=== PATIENT | female | born 1995 | race Caucasian/White ===

== ENCOUNTER 2017-05-03 06:50 | Inpatient (IN) | payer MEDICAID, SELFPAY ==
[2017-05-03 06:59] VITALS: BMI 41.5
[2017-05-03] MEDS: Lactated Ringers 1,000 ML 50 ML IV ×2 (07:30→11:19)
[2017-05-03] MEDS: Oxytocin 30 units/NS 500 ml 30 UNITS/500 ML IV.SOLN IV (07:49)
[2017-05-03 08:13] LABS: Hemoglobin 9.6 g/dl (12.0-15.0); Mean Corp Hgb Conc 34.3 g/gl (32-36); Mean Corpuscular Hgb 31.5 pg (27.0-32.0); Mean Corpuscular Volume 91.8 fL (81-99); Platelet Count 195 K/mm3 (150-450); RBC Distribution Width CV 13.1 % (11.6-14.6); RBC Distribution Width SD 42.2 fl (35.1-43.9); Red Blood Count 3.05 M/mm3 (4.2-5.4); White Blood Count 8.4 K/mm3 (4.4-11.0)
[2017-05-03 08:19] LABS: Scan Indicated on CBC? Y/N NO
--- NOTE | 2017-05-03 09:57 | PCM.PN.OB ---
Subjective: Feeling contractions strongly. Objective: Afeb VSS BPs normal today FHR tracing Cat 1. - Physical Exam General: Alert, Oriented x3, Cooperative, No apparent distress Lungs: Clear to auscultation, Normal air movement Cardiovascular: Regular rate, Regular Rhythm Abdomen: Soft, Non Tender, Non-Distended, Gravid, Appropriate for Gestational Age, - - Significant lower abdomen edema present Extremities: Edema - pitting edema to mid thigh Neurological: Neuro grossly intact Psych/Mental Status: Normal Affect Comment: CE 08/02/-2 Weight: 219 lb 9.6 oz Body Mass Index (BMI) 41.5 Laboratory Tests Past 24 Hrs 05/03/17 05/03/17 07:30 07:30 WBC 8.4 RBC 3.05 L Hgb 9.6 L Hct 28.0 L MCV 91.8 MCH 31.5 MCHC 34.3 RDW 13.1 RDW Differential 42.2 Plt Count 195 MPV 11.0 Blood Type O POSITIVE Antibody Screen NEGATIVE Assessment/Plan AROM performed with clear fluid noted. Continue pitocin induction.
[2017-05-03] MEDS: Oxytocin 30 units/NS 500 ml 30 UNITS/500 ML IV.SOLN 334 UNITS IV (15:00)
[2017-05-03] MEDS: Oxytocin 30 units/NS 500 ml 30 UNITS/500 ML IV.SOLN 167 UNITS IV (15:30)
[2017-05-03] MEDS: Ibuprofen 600 MG Tablet PO (16:26)
[2017-05-03] MEDS: Furosemide 20 MG Tablet PO (18:02)
--- NOTE | 2017-05-03 18:29 | PCM.OB.VAG ---
(1) induced hypertension, antepartum Status: Chronic Vaginal Delivery Maternal Presentation: Medically Indicated Induction Presented at 38w1d ega admitted for induction of labor secondary to induced hypertension possible preeclampsia. Method of Induction: Pitocin Medical Reason for Induction: Gestational Hypertension, Preeclampsia, eclampsia Amniotic Membrane Rupture Type: Artificial - 1000 Amniotic Fluid Description: Clear Final SPARKLE: 05/16/17 Final SPARKLE Source: US <20 weeks Gestational age: 38 Weeks and 1 Days Date of Procedure: 05/03/17 Pre-Operative Diagnosis: labor Post-Operative Diagnosis: labor Surgery/ Procedure Performed: Spontaneous Vaginal Delivery Anesthesiologist: Julio César Norman Type of Anesthesia: Epidural Description of Procedure: Progressed to FD then pushed for less than one push to deliver the head precipitously. The shoulders were then delivered with gentle traction. The nose and mouth were suctioned and the cord was clamped and cut. Apgars were 8/9. The placenta was delivered spontaneously intact with a centrally located 3VC. The uterus contracted well after delivery. Inspection reveals intact cervix, vagina, and perineum. Presentation: Vertex Placental Delivery Description: Spontaneous Placenta Disposition: [facility] Percentage of Placenta Abruption: 0 Cord Vessel Description: 3 Vessels Nuchal Cord Compression: Without compression Cord Entanglement: None, Around neck x 1, loose Drain: Snell to straight drain Estimated Blood Loss: 300cc Infant A gender: Female (1 minute): 8 (5 minute): 9 Episiotomy Description: None Laceration: None Medications given after delivery: IV Pitocin Complications: None
--- NOTE | 2017-05-03 18:37 | OP.PCM_ITS ---
(1) induced hypertension, antepartum Status: Chronic Vaginal Delivery Maternal Presentation: Medically Indicated Induction Presented at 38w1d ega admitted for induction of labor secondary to induced hypertension possible preeclampsia. Method of Induction: Pitocin Medical Reason for Induction: Gestational Hypertension, Preeclampsia, eclampsia Amniotic Membrane Rupture Type: Artificial - 1000 Amniotic Fluid Description: Clear Final SPARKLE: 05/16/17 Final SPARKLE Source: US <20 weeks Gestational age: 38 Weeks and 1 Days Date of Procedure: 05/03/17 Pre-Operative Diagnosis: labor Post-Operative Diagnosis: labor Surgery/ Procedure Performed: Spontaneous Vaginal Delivery Anesthesiologist: Julio César Norman Type of Anesthesia: Epidural Description of Procedure: Progressed to FD then pushed for less than one push to deliver the head precipitously. The shoulders were then delivered with gentle traction. The nose and mouth were suctioned and the cord was clamped and cut. Apgars were 8/ 9. The placenta was delivered spontaneously intact with a centrally located 3VC. The uterus contracted well after delivery. Inspection reveals intact cervix, vagina, and perineum. Presentation: Vertex Placental Delivery Description: Spontaneous Placenta Disposition: [facility] Percentage of Placenta Abruption: 0 Cord Vessel Description: 3 Vessels Nuchal Cord Compression: Without compression Cord Entanglement: None, Around neck x 1, loose Drain: Snell to straight drain Estimated Blood Loss: 300cc A gender: Female (1 minute): 8 (5 minute): 9 Episiotomy Description: None Laceration: None Medications given after delivery: IV Pitocin Complications: None
--- NOTE | 2017-05-03 18:38 | DCINST_ITS ---
Discharge Diet: No Restrictions Discharge Activity: Return to Normal Activity, May Drive, May Shower Return to work on:: 06/30/17 May shower in (days): 0 May resume sexual activity in: 4-6 weeks Call your doctor if your incision/area has: Sudden Increased Bleeding, Increased Pain/ Swelling, Foul Smelling Discharge Call your doctor if you observe: Fever of 101 or Higher, Inability to urinate, Inability to have a bowel movement, Using more than one pad per hour, Shortness of breath, Chest pain, Calf discomfort, Uncontrolled pain Cleanse incision/area with: Soap & Water Additional Instructions: If you experience any of the following, contact your healthcare provider. * Bleeding that soaks a pad every hour for 2 hours * Fever 100.4 or higher * Unrelieved incision or abdominal pain * Swelling, redness, discharge or bleeding from your incision or episiotomy site * Your incision begins to separate * Problems urinating (including inability to urinate or burning while urinating) . * Visual changes * Severe headache * Flu-like symptoms * Pain or redness in one of both of your breasts * Pain, warmth, tenderness or swelling in your legs, especially the calf area * Frequent nausea and vomiting * Symptoms of depression or anxiety If you experience any of the following, call 911 or go to the nearest Emergency Room. * Chest pain * Problems breathing * Seizure activity * Partial or complete paralysis of a body part, slurred speech, weakness or drooping of the face, or a sudden inability to walk or hold your balance Allergies/Adverse Reactions: Allergies Sulfa (Sulfonamide Antibiotics) Allergy (Verified 05/03/17 07:51) Hives tramadol Allergy (Verified 05/03/17 07:51) Vomiting Medications to take at Discharge Ferrous Gluconate 324 mg PO BID 04/16/17 Pantoprazole Sodium [Protonix] 40 mg PO DAILY 04/16/17 Vit No.130/Iron/FA [ Tablet] 1 each PO DAILY 04/16/17 Ibuprofen [Motrin] 800 mg PO TID PRN PRN #30 tab 05/03/17 Zolpidem Tartrate [Ambien] 10 mg PO 05/03/17 The following prescriptions were given: Ibuprofen [Motrin] 800 mg PO TID PRN PRN #30 tab PRN Reason: pain or cramping Please Follow Up With: Johnie Grant MD When: 6 weeks Primary Care Physician: Igor Hurley MD [Primary Care Provider] - Proposed Discharge Date: 05/05/17
[2017-05-03 21:00] VITALS: BP 109/72; PULSE 66; RESP 16; TEMP 36.9
[2017-05-04 00:30] VITALS: BP 132/61; PULSE 70; RESP 16; TEMP 36.6
[2017-05-04] MEDS: Ibuprofen 600 MG Tablet PO ×3 (02:57→18:06)
[2017-05-04 04:16] VITALS: BP 110/67; PULSE 80; RESP 18; TEMP 36.9
[2017-05-04 05:13] LABS: Hemoglobin 9.2 g/dl (12.0-15.0); Mean Corp Hgb Conc 34.1 g/gl (32-36); Mean Corpuscular Hgb 31.4 pg (27.0-32.0); Mean Corpuscular Volume 92.2 fL (81-99); Mean Platelet Vol. 10.7 fl (6.2-12.0); Platelet Count 187 K/mm3 (150-450); RBC Distribution Width CV 13.2 % (11.6-14.6); RBC Distribution Width SD 42.5 fl (35.1-43.9); Red Blood Count 2.93 M/mm3 (4.2-5.4)
[2017-05-04 05:21] LABS: Scan Indicated on CBC? Y/N NO
--- NOTE | 2017-05-04 08:00 | PCM.PN.OB ---
Subjective: No specific complaints. Lower extremity swelling better today and less painful. Bleeding light. Bottle feeding. Objective: AFeb VSS Hgb stable - Physical Exam General: Alert, Oriented x3, Cooperative, No apparent distress Lungs: Clear to auscultation, Normal air movement Cardiovascular: Regular rate, Regular Rhythm Abdomen: Soft, Non Tender, Non-Distended, - - Fundus nontender Extremities: Edema - pitting to knee Skin: No rashes Vital Signs Temp Pulse Resp BP 98.4 F 80 18 110/67 05/04/17 04:16 05/04/17 04:16 05/04/17 04:16 05/04/17 04:16 Weight: 219 lb 9.6 oz Body Mass Index (BMI) 41.5 Intake and Output for Last 24 Hours 05/02/17 05/03/17 05/04/17 23:59 23:59 23:59 Intake Total 3000 / 3000 Output Total 800 / 800 Balance 2200 / 2200 Laboratory Tests Past 24 Hrs 05/03/17 05/03/17 05/04/17 07:30 07:30 05:00 WBC 8.4 10.0 RBC 3.05 L 2.93 L Hgb 9.6 L 9.2 L Hct 28.0 L 27.0 L MCV 91.8 92.2 MCH 31.5 31.4 MCHC 34.3 34.1 RDW 13.1 13.2 RDW Differential 42.2 42.5 Plt Count 195 187 MPV 11.0 10.7 Blood Type O POSITIVE Antibody Screen NEGATIVE Assessment/Plan Doing well on PP day#1. Continue routine PP care. Continue lasix.
[2017-05-04 08:30] VITALS: BP 123/85; PULSE 86; RESP 16; TEMP 36.7; O2SAT 96
[2017-05-04] MEDS: Furosemide 20 MG Tablet PO ×2 (09:17→18:06)
[2017-05-04] MEDS: Pantoprazole Sodium 40 MG Tablet PO (09:17)
[2017-05-04 11:56] VITALS: BP 125/54; PULSE 70; RESP 16; TEMP 36.4; O2SAT 97
[2017-05-04] MEDS: Prenatal Vits Tablet 1 TABLET PO (11:57)
[2017-05-04 16:47] VITALS: BP 126/64; PULSE 82; RESP 18; TEMP 36.4; O2SAT 98
[2017-05-04 19:50] VITALS: BP 118/73; PULSE 80; RESP 16; TEMP 36.8
[2017-05-04] MEDS: Acetaminophen 500 MG Tablet 1000 MG PO (22:52)
[2017-05-05 03:20] VITALS: BP 120/68; PULSE 71; RESP 16; TEMP 36.8
[2017-05-05] MEDS: Furosemide 20 MG Tablet PO (08:17)
[2017-05-05] MEDS: Ibuprofen 600 MG Tablet PO (08:17)
[2017-05-05] MEDS: Pantoprazole Sodium 40 MG Tablet PO (08:18)
[2017-05-05 08:21] VITALS: BP 123/69; PULSE 68; RESP 16; TEMP 36.2; O2SAT 97
--- NOTE | 2017-05-05 08:38 | PCM.PN.OB ---
Subjective: No complaints. Swelling in LE reduced but still pitting. Bleeding light. Objective: Afeb VSS - Physical Exam General: Alert, Oriented x3, Cooperative, No apparent distress Lungs: Clear to auscultation, Normal air movement Cardiovascular: Regular rate, Regular Rhythm Abdomen: Soft, Non Tender, Non-Distended, - - Fundus nontender Extremities: Edema - LE Skin: No rashes Neurological: Neuro grossly intact Psych/Mental Status: Normal Affect Vital Signs Temp Pulse Resp BP Pulse Ox 97.2 F L 68 16 123/69 H 97 05/05/17 08:21 05/05/17 08:21 05/05/17 08:21 05/05/17 08:21 05/05/17 08:21 Oxygen Delivery Method Room Air Weight: 219 lb 9.6 oz Body Mass Index (BMI) 41.5 Intake and Output for Last 24 Hours 05/03/17 05/04/17 05/05/17 23:59 23:59 23:59 Intake Total 3000 / 3000 Output Total 800 / 800 Balance 2200 / 2200 Assessment/Plan Doing well on PP day#2. Cleared for discharge home today. Home going instructions and warnings given.
--- NOTE | 2017-05-05 08:45 | PCM.DC.SUM ---
Discharge Date and Diagnosis Date of Admission: 05/03/17 Date of Discharge: 05/05/17 - Primary Discharge Diagnosis S/P - Secondary Discharge Diagnosis Chronic Problems induced hypertension, antepartum (Chronic) Hospital Course and Treatment Consultations 05/03/17 06:59 Consult: Anesthesia Routine Comment: Reason For Exam: LABOR Operations: None Procedures: - - Pitocin induction, epidural, Summary of Care Provided: The patient is a 21 year old F [admitted for induction of labor secondary to induced hypertension and possible preeclammpsia. Pitocin induction was performed with resultant normal spontaneous vaginal delivery. Post course unremarkable. Discharged home on PP day#2.] Discharge Diet: No Restrictions Discharge Activity: Return to Normal Activity, May Drive, May Shower Return to work on:: 06/30/17 May shower in (days): 0 May resume sexual activity in: 4-6 weeks Call your doctor if your incision/area has: Sudden Increased Bleeding, Increased Pain/ Swelling, Foul Smelling Discharge Call your doctor if you observe: Fever of 101 or Higher, Inability to urinate, Inability to have a bowel movement, Using more than one pad per hour, Shortness of breath, Chest pain, Calf discomfort, Uncontrolled pain Cleanse incision/area with: Soap & Water Home Medications: Medications to take at Discharge Ferrous Gluconate 324 mg PO BID 04/16/17 Pantoprazole Sodium [Protonix] 40 mg PO DAILY 04/16/17 Vit No.130/Iron/FA [ Tablet] 1 each PO DAILY 04/16/17 Ibuprofen [Motrin] 800 mg PO TID PRN PRN #30 tab 05/03/17 Zolpidem Tartrate [Ambien] 10 mg PO 05/03/17 Following Prescrptions Were Given to Patient: Ibuprofen [Motrin] 800 mg PO TID PRN PRN #30 tab PRN Reason: pain or cramping Primary Care Physician: Igor Hurley MD [Primary Care Provider] - Please Follow Up With: Johnie Grant MD When: 6 weeks Disposition: Home Minutes spent on discharge:: 15 Patient Condition:: Good Meaningful Use Info Meaningful Use Diagnoses (Choose all that apply): None applicable
== END 2017-05-05 09:20 | disposition home or self-care (01) | DRG 372 ==
PROVIDERS: Obstetrics & Gynecology; Admitting Provider Obstetrics & Gynecology; Family Provider Family Medicine; PCP Family Medicine; Visit Provider Obstetrics & Gynecology
DX: O14.94 Unspecified pre-eclampsia, complicating childbirth (principal); Z37.0 Single live birth; Z3A.38 38 weeks gestation of pregnancy; Z87.891 Personal history of nicotine dependence
CPT/HCPCS: 59025; 59050; 85027; 86850; 86900; J7120; J0290

== ENCOUNTER 2017-07-19 07:10 | Day surgery (SDC) | payer MEDICAID, SELFPAY ==
[2017-07-17 10:08] LABS: Hematocrit 38.9 % (37-47); Mean Corpuscular Hgb 30.7 pg (27.0-32.0); Mean Corpuscular Volume 85.3 fL (81-99); Mean Platelet Vol. 11.1 fl (6.2-12.0); Platelet Count 238 K/mm3 (150-450); RBC Distribution Width CV 12.1 % (11.6-14.6); RBC Distribution Width SD 36.4 fl (35.1-43.9); Red Blood Count 4.56 M/mm3 (4.2-5.4); White Blood Count 8.1 K/mm3 (4.4-11.0)
[2017-07-17 10:14] LABS: Scan Indicated on CBC? Y/N NO
[2017-07-17 10:18] LABS: Prothrombin Time (Protime)PT. 13.3 SECONDS (11.7-14.9)
[2017-07-17 10:46] LABS: Pregnancy, Serum, hCG Quali. NEGATIVE Negative (0-9 Nonpreg)
[2017-07-19 07:29] VITALS: BP 115/65; PULSE 77; RESP 16; TEMP 36.7; O2SAT 98; BMI 32.6
[2017-07-19 07:31] LABS: Internal QC Validated? YES +Cl - CLEAR BKGD; Pregnancy, Urine Negative Negative
[2017-07-19] MEDS: Bupivacaine 0.25% 30 ML Vial (08:54)
--- NOTE | 2017-07-19 08:55 | FALS_PTH ---
PATIENT: YOUSUF MORA LOC: [facility] [place] U#:[id number] AGE/SX: 21/F ROOM: RE07/19/[address]: Dr. Johnie Grant MD : 1995 BED: DIS: 07/19/2017 SPEC #: [id number] RECD: 07/19/17 14:24 STATUS: RIN REWally #: [id number] ROSITA: 07/19/17 08:[address]: Johnie Grant DEPT: SURGICAL PATHOLOGY RECD BY: Anthony Mtz ENTERED: 07/19/17 14:24 SP TYPE: FALL TUBES OTHR DR: Dr. Igor Hurley MD Tissues: Fallopian tube Procedures: Surgery Specimen Level II HEADER OPERATION: Laparoscopic salpingectomy PRE-OP DIAGNOSIS: Desired sterilization TISSUE SUBMITTED: Bilateral fallopian tubes MICROSCOPIC DIAGNOSIS Bilateral fallopian tubes, salpingectomy: Bilateral fallopian tubes including fimbrial ends, no pathologic diagnosis. Bilateral paratubal cysts. SJ:sayda 07/20/17 MICROSCOPIC DESCRIPTION Slides are reviewed. GROSS DESCRIPTION Received is one container labeled with the patient's name and designated bilateral fallopian tubes. The specimen consists of bilateral fallopian tubes including fimbrial ends. The fallopian tubes are not identified as right or left. One of the fallopian tubes measure 7 cm in length and up to 1 cm in diameter. A collapsed cyst is noted 1.5 cm away from the fimbrial end measuring 2 cm in greatest dimension. The second fallopian tube measures 7 cm in length and 0.6 cm in diameter. 1.5 cm away from the fimbrial end a cyst is noted measuring 0.5 cm in greatest dimension. Sections of both fallopian tubes reveal unremarkable cut surfaces. Medical Surgical Tech sections are submitted in two cassettes as follows: 1 ? one fallopian tube and adjacent paratubal cyst, 2 ? second fallopian tube and adjacent paratubal cyst. / GWEN:sayda 07/19/17 TC:5 CPT: 77306 x2
--- NOTE | 2017-07-19 09:18 | PCM.DC ---
- Discharge Diagnoses Reason(s) for Visit for Discharge Instructions: Laparoscopic Bilateral Salpingectomy You will use the following diet at home:: No restrictions Discharge Activity: Return to Normal Activity, No Restrictions, May Drive, May not drive while taking narcotic pain medications., May Shower Return to work on:: 07/31/17 May shower in (days): 0 May resume sexual activity in: 3 weeks Call your doctor if your incision/area has: Continuous Slow Oozing, Sudden Increased Bleeding, Increased Pain/ Swelling, Increased Redness, Foul Smelling Discharge, Swelling at the incision site Call your doctor if you observe: Fever of 101 or Higher, Inability to urinate, Inability to have a bowel movement, Using more than one pad per hour, Shortness of breath, Chest pain, Calf discomfort, Uncontrolled pain Remove Dressing in (days):: 2 Cleanse incision/area with: Soap & Water Allergies/Adverse Reactions: Allergies Sulfa (Sulfonamide Antibiotics) Allergy (Verified 07/12/17 09:46) Hives tramadol Allergy (Verified 07/12/17 09:46) Vomiting Medications to take at Discharge Ibuprofen [Motrin] 800 mg PO TID PRN PRN #30 tab 07/19/17 Oxycodone [Oxyir] 5 mg PO Q4H PRN PRN 5 Days #14 tab 07/19/17 The following prescriptions were given: Oxycodone [Oxyir] 5 mg PO Q4H PRN PRN 5 Days #14 tab PRN Reason: Pain Ibuprofen [Motrin] 800 mg PO TID PRN PRN #30 tab PRN Reason: pain or cramping Primary Care Physician: Igor Hurley MD [Primary Care Provider] - Please Follow Up With: Johnie Grant MD When: one week Proposed Discharge Date: 07/19/17
--- NOTE | 2017-07-19 09:21 | PCM.OPRPT ---
Problem List (1) Request for sterilization Status: Chronic Report of Operation Date of Procedure: 07/19/17 Pre-Operative Diagnosis: Requests permanent sterilization Post-Operative Diagnosis: Same Surgery/Procedure Performed:: Laparoscopic bilateral salpingectomy Description of Surgical Findings:: Normal appearing uterus, cervix, fallopian tubes and ovaries. Liver and stomach appeared normal. supervisor plating and point assembly: Roseann Robles Type of Anesthesia:: General Anesthesiologist: Jabier Gray Special Medications: none Specimen's removed: right and left fallopian tubes Drains: none Estimated Blood Loss (mL): minimal Fluids Replaced: 500cc LR Description of Procedure: Paulina was taken to the OR with IV running. She was given two grams of Cefotetan intravenously prior to the surgery for prophylaxis. SCDs were in place and operational throughout the case and into recovery. General anesthesia was introduced without complication. SHe was then prepped and draped in the dorsal lithotomy position. A red rubber catheter was used to drain the bladder. A uterine manipulator was placed. Attention was then directed to the abdomen. A 5mm vertical incision was then made in the lower base of the umbilicus. The underlying subcutaneous tissue was dissected down to the level of the fascia with blunt dissection with a Joceline clamp. The abdomen was then elevated and a Veress needle was placed into the abdominal cavity. The abdomen was then inflated to 15 Torr with CO2 gas. The Veress needle was removed and replaced with a 5 mm laparoscopic port and trocar. The trocar was removed and replaced with the laparoscope. Findings were as mentioned above. Two 5mm lateral side ports were then placed just below the level of the umbilicus right and left of the right and left inferior epigastric vessels. Hemostasis was excellent after port placement. Attention was then directed to the left fallopian tube which was grasped, elevated and the mesosalpinx was dissected from the fimbriated end to the cornua of the uterus. The fallopian tube was then amputated at the cornua. The tube was removed through the left laparoscopic port. In a similar fashion the right fallopian tube was dissected and removed. Hemostasis was excellent at the mesosalpinx bilaterally. The laparoscopic ports were then removed and the gas evacuated from the abdomen. The skin incisions were closed with 4-0 monocryl suture. The port sites were injected superficially with 0.25% Marcaine. The uterine manipulator was removed. Anesthesia was reversed without complication. She was taken to the recovery room in stable condition. Sponge and needle counts were correct. Grafts/Implants Used: none - Complications none - Admit VTE Documentation VTE Present on Admission: No VTE Mechan Device Prophylaxis: SCD's VTE Pharm Prophylaxis ordered?: No
[2017-07-19 10:06] VITALS: BP 101/61; BP 115/65; PULSE 68; RESP 16; TEMP 36.5; O2SAT 97
[2017-07-19 10:15] VITALS: BP 104/58; BP 115/65; PULSE 59; RESP 16; O2SAT 100
[2017-07-19 10:30] VITALS: BP 112/67; BP 115/65; PULSE 55; RESP 16; O2SAT 100
[2017-07-19 10:42] VITALS: BP 115/65; BP 93/54; PULSE 57; RESP 16; TEMP 36.6; O2SAT 100
[2017-07-19 11:00] VITALS: BP 115/65
== END 2017-07-19 12:20 | disposition home or self-care (01) ==
LOC: SDC 07:11 → AC 07:11
PROVIDERS: Anesthesiology; Family Provider Family Medicine; PCP Family Medicine; Visit Provider Obstetrics & Gynecology
PROC: (CPT 58661; principal; 2017-07-19 08:40)
DX: Z30.2 Encounter for sterilization (principal); N83.8 Other noninflammatory disorders of ovary, fallopian tube and broad ligament; Z72.0 Tobacco use
CPT/HCPCS: 58661; 36415; 81025; 84703; 85027; 85610; 85730; 86850; 86900; 88302; J7120; J2405

== ENCOUNTER → 2017-08-29 18:59 | Outpatient (CLI) | payer MEDICAID, SELFPAY ==
[2017-09-01 14:30] LABS: HPV Reflexed? NOT INDICATED
== END ==
PROVIDERS: Family Provider Obstetrics & Gynecology; PCP Obstetrics & Gynecology; Visit Provider Obstetrics & Gynecology
DX: Z12.4 Encounter for screening for malignant neoplasm of cervix (principal); Z12.72 Encounter for screening for malignant neoplasm of vagina
CPT/HCPCS: 88175; G0145

== ENCOUNTER → 2018-08-30 13:48 | Outpatient (CLI) | payer MEDICAID, SELFPAY ==
[2018-08-30 16:17] LABS: Hemoglobin A1c 4.8 % (4.2-6.3)
[2018-08-30 16:20] LABS: Free T3 2.9 pg/mL (2.18-3.98); Glucose 91 mg/dL (74-106); T4 Free Direct 0.88 ng/dL (0.76-1.46); Thyroid Stim Hormone (TSH) 1.47 uIU/mL (0.358-3.74)
[2018-09-04 16:39] LABS: HPV Reflexed? NOT INDICATED
== END ==
PROVIDERS: Family Provider Obstetrics & Gynecology; PCP Obstetrics & Gynecology; Visit Provider Obstetrics & Gynecology
DX: Z12.4 Encounter for screening for malignant neoplasm of cervix (principal); E66.3 Overweight
CPT/HCPCS: 36415; 82947; 83036; 84439; 84443; 84481; 88175; G0145

== ENCOUNTER 2019-05-14 03:11 | Emergency (ER) | payer MEDICAID, SELFPAY ==
[2019-05-14 03:12] VITALS: BP 125/83; PULSE 80; RESP 17; TEMP 35.6; O2SAT 98; BMI 32.8
--- NOTE | 2019-05-14 03:35 | ED.DCSUM_ITS ---
History of Present Illness Chief Complaint: Back Narrative: Patient is a pleasant generally healthy 23-year-old female who presents with epigastric abdominal pain and vomiting. She initially developed pain in her mid back about 9 PM last night. She does have a history of sciatica so initially attributed this to her prior back pain. However shortly before presentation here she began to develop epigastric pain which she describes as more of a discomfort. It is colicky and waxes and wanes. She then had one episode of nonbloody nonbilious emesis. No diarrhea. No pelvic pain. No vaginal bleeding vaginal discharge dysuria frequency urgency. No recent illness. No fevers or cough. No chest pain or shortness of breath. Her only abdominal surgery is a tubal ligation. Past Medical History - Allergies and Home Meds Allergies/Adverse Reactions: Allergies Sulfa (Sulfonamide Antibiotics) Allergy (Verified 05/14/19 03:11) Hives tramadol Allergy (Verified 05/14/19 03:11) Vomiting Primary Care Physician: Igor Hurley MD [Primary Care Provider] - Past Medical History: None Smoking Status: Current every day smoker Review of Systems All systems negative except as indicated General: Reports: Fever Eyes: Denies: Visual changes - bilaterally ENT: Denies: Bilateral ear pain Cardiovascular: Denies: Chest pain Respiratory: Denies: Dyspnea Gastrointestinal: Reports: Abdominal pain, Nausea, Vomiting. Denies: Diarrhea Genitourinary: Denies: Dysuria, Hematuria Musculoskeletal: Denies: Myalgias, Arthralgias Skin: Denies: Rash Neurological: Denies: Headache Hematologic: Denies: Easy bruising Allergy: Denies: Uticaria Physical Exam Vital Signs/Narrative: Vital Signs Temp Pulse Resp BP Pulse Ox 05/14/19 03:12 96.0 F L 80 17 125/83 H 98 Inital Vital Signs reviewed: Yes General: Well nourished Head: Normocephalic Eyes: EOMI ENT: Moist mucous membranes Neck: Supple Cardiovascular: Regular rate, Regular rhythm Respiratory: No distress, CTA bilaterally Abdomen: Soft, Tender - Mid epigastric abdominal tenderness without guarding without rebound no focal right upper quadrant or right lower quadrant tenderness, no Mobley's sign Extremities: Nontender Skin: Normal color Neurological: Alert Psychological: Normal affect Diagnostic/Tx/Re-eval Laboratory Results 05/14/19 05/14/19 05/14/19 03:55 03:55 03:55 WBC 11.1 H RBC 4.70 Hgb 14.3 Hct 41.2 MCV 87.7 MCH 30.4 MCHC 34.7 RDW Std Deviation 38.5 RDW Coeff of Lwe 12.1 Plt Count 166 MPV 11.7 Immature Gran % (Auto) 0.500 Neut % (Auto) 59.7 Lymph % (Auto) 30.5 [place] % (Auto) 7.2 Eos % (Auto) 1.8 Baso % (Auto) 0.3 Absolute Neuts (auto) 6.6 Absolute Lymphs (auto) 3.39 Nucleated RBC % 0 Sodium 138 Potassium 3.5 Chloride 106 Carbon Dioxide 25.0 Anion Gap 7 BUN 14 Creatinine 0.76 Estim Creat Clear Calc 86.13 Est GFR (MDRD) Af Amer 121 Est GFR (MDRD) Non-Af 100 BUN/Creatinine Ratio 18.5 Glucose 89 Calcium 9.0 Total Bilirubin 0.30 AST 12 L ALT 24 Alkaline Phosphatase 92 Total Protein 7.6 Albumin 3.6 Globulin 4.0 Albumin/Globulin Ratio 0.9 Lipase 121 Serum , Qual NEGATIVE - Medical Decision Making Patient was treated with IV fluids, Toradol, Zofran. She feels much better on reevaluation and is resting comfortably. Labs are unremarkable. I suspect this is a self-limited illness. Patient advised on supportive care and was discharged home. ED Disposition - Plan for ED Patient: Disposition: Home or Assisted Living Diagnosis: Vomiting Instructions: DIET, Vomiting or Diarrhea [5yr-Adult] Referrals: Igor Hurley MD [Primary Care Provider] -
[2019-05-14] MEDS: Ketorolac 30 MG/ML Syringe IV (03:52)
[2019-05-14] MEDS: Ondansetron 4 MG/2 ML Vial IV (03:52)
[2019-05-14] MEDS: 0.9% Normal Saline 1,000 ML 1000 ML IV (03:53)
[2019-05-14 04:01] LABS: Absolute Lymphocyte Count 3.39 X10^3/uL (0.83-4.51); Absolute Neutrophil Count 6.6 X10^3/uL (2.0-7.7); Basophil# 0.03 X10^3/uL; Basophil% 0.3 % (0-1); Eosinophils% 1.8 % (0-5); Hematocrit 41.2 % (37-47); Hemoglobin 14.3 g/dL (12.0-15.0); Lymphocyte # 3.39 X10^3/ul (4.0); Lymphocyte % 30.5 % (19-41); Mean Corp Hgb Conc 34.7 g/dL (32-36); Mean Corpuscular Hgb 30.4 pg (27.0-32.0); Mean Corpuscular Volume 87.7 fL (81-99); Mean Platelet Vol. 11.7 fl (6.2-12.0); Monocyte% 7.2 % (0-10); NRBC Flagged by Analyzer 0 % (0-5); Neutrophil # 6.63 X10^3/uL (2.7-7.7); Neutrophil % 59.7 % (47-70); Platelet Count 166 K/mm3 (150-450); RBC Distribution Width CV 12.1 % (11.6-14.6); RBC Distribution Width SD 38.5 fl (35.1-43.9); White Blood Count 11.1 K/mm3 (4.4-11.0)
[2019-05-14 04:08] LABS: Internal QC Validated? YES +Cl - CLEAR BKGD
[2019-05-14 04:09] LABS: Pregnancy, Serum, hCG Quali. NEGATIVE Negative
[2019-05-14 04:17] LABS: ALB/GLOB Ratio 0.9 RATIO (0.9-2.4); AST(SGOT) 12 U/L (15-37); Alanine Aminotransfer ALT/SGPT 24 U/L (13-56); Albumin, Serum 3.6 g/dL (3.2-5.0); Alkaline Phosphatase 92 U/L (45-117); Anion Gap 7 (5-15); BUN 14 mg/dL (7-18); BUN/Creat Ratio 18.5 RATIO (10-20); Chloride 106 mmol/L (98-107); Creatinine, Serum 0.76 mg/dL (0.55-1.02); EST Glomerular Filtration Rate 100 mL/min (>60); Est Glom Filt Rate - Afr Amer 121 mL/min (>60); Estimated Creatinine Clearance 86.13 ml/min; Glucose 89 mg/dL (74-106); Lipase 121 U/L (73-393); Potassium 3.5 mmol/L (3.5-5.1); Protein, Total 7.6 g/dL (6.4-8.2); Sodium Level 138 mmol/L (136-145)
[2019-05-14 04:48] VITALS: BP 132/68; PULSE 70; RESP 18; O2SAT 100
== END 2019-05-14 04:50 | disposition home or self-care (01) ==
PROVIDERS: Emergency Provider Emergency Medicine; PCP Family Medicine; Referring Provider Family Medicine
DX: R11.10 Vomiting, unspecified (principal); F17.200 Nicotine dependence, unspecified, uncomplicated
CPT/HCPCS: 80053; 83690; 84703; 85025; 96361; 96374; 96375; 99283; J7030; J2405

== ENCOUNTER 2020-03-22 11:36 | Emergency (ER) | payer MEDICAID, SELFPAY ==
[2020-03-22 11:37] VITALS: BP 142/72; PULSE 85; RESP 17; TEMP 36.7; O2SAT 99; BMI 31.2
--- NOTE | 2020-03-22 11:48 | EKG12_ITS ---
Test Reason : Blood Pressure : / mmHG Vent. Rate : 082 BPM Atrial Rate : 082 BPM P-R Int : 136 ms QRS Dur : 076 ms QT Int : 364 ms P-R-T Axes : 052 016 028 degrees QTc Int : 425 ms Normal sinus rhythm Normal ECG Confirmed by FE ZAMARRIPA, MARTHA ([id number]), commercial production editor WAYLON NAIK ([id number]) on 03/25/2020 9:34:50 AM Referred By: JACQUI Confirmed By:MARTHA MIRAMONTES MD
--- NOTE | 2020-03-22 11:48 | RAD_ITS ---
STUDY: X-RAY CHEST REASON FOR EXAM: Female, 24 years old. Palpitations. TECHNIQUE: Single frontal view of the chest. COMPARISON: None. FINDINGS: The lungs are clear and expanded. There is no demonstrated pleural abnormality. Normal size heart. Normal mediastinum and angelina. Normal visualized pulmonary arteries. Normal visualized aortic arch and descending thoracic aorta. Normal visualized thoracic spine. Normal visualized ribs, clavicles, and shoulders. There is no demonstrated abnormality of the visualized soft tissue structures of the upper abdomen. RAD/Chest 1 View (Portable) IMPRESSION: Normal x-ray examination of the chest. Electronically Signed: Willem Seay MD at 12:51 EST , Service support ,
--- NOTE | 2020-03-22 11:49 | ED.VIS.GEN ---
History of Present Illness Chief Complaint: Palpitations Informant: Patient Onset: Today Current Severity: Mild Maximum Severity: Severe Narrative: Patient states that she was awoken from sleep at 2 AM this morning with pounding, fast racing heart. She states her body felt numb and tingly at the time. She did not feel as if she was going to pass out. She was able to fall back asleep around 4 AM and when she woke later this morning did feel better. She states her landlord convinced her to come in and get checked out. She denies recent diet change. She denies recent change in caffeine consumption. She does report that this happened 1 time previously but this episode was more severe. Past Medical History - Allergies and Home Meds Allergies/Adverse Reactions: Allergies Sulfa (Sulfonamide Antibiotics) Allergy (Verified 03/22/20 11:36) Hives tramadol Allergy (Verified 03/22/20 11:36) Vomiting Primary Care Physician: Igor Hurley MD [Primary Care Provider] - Past Medical History: None Smoking Status: Current every day smoker Review of Systems General: Denies: Chills, Fever Eyes: Denies: Visual changes - bilaterally ENT: Denies: Bilateral ear pain Cardiovascular: Reports: Chest pain, Palpitations, Heart racing Respiratory: Denies: Dyspnea Gastrointestinal: Denies: Abdominal pain, Vomiting, Diarrhea Musculoskeletal: Denies: Extremity Pain Skin: Denies: Rash Neurological: Denies: Headache Hematologic: Denies: Easy bruising, Easy bleeding Allergy: Denies: Uticaria Physical Exam Vital Signs/Narrative: Vital Signs Temp Pulse Resp BP Pulse Ox 03/22/20 11:37 98.1 F 85 17 142/72 H 99 Inital Vital Signs reviewed: Yes General: Well nourished, Well developed Head: Normocephalic ENT: Moist mucous membranes Neck: Supple Cardiovascular: Regular rate, Regular rhythm Respiratory: No distress, CTA bilaterally Abdomen: Soft, Nontender Extremities: Nontender Skin: Normal color Neurological: Alert, Oriented x3, Normal Strength, Normal Sensation Psychological: Normal affect Diagnostic/Tx/Re-eval Chest X-Ray - ED: 1 View, Read by ED Physician, Normal, Heart, Lungs, Mediastinum 03/22/20 11:48 Chest 1 View (Portable) [RAD] Stat Laboratory Results 03/22/20 03/22/20 12:03 12:03 WBC 5.7 RBC 4.35 Hgb 13.5 Hct 37.8 MCV 86.9 MCH 31.0 MCHC 35.7 RDW Std Deviation 37.7 RDW Coeff of Lew 11.9 Plt Count 160 MPV 12.1 H Immature Gran % (Auto) 0.200 Neut % (Auto) 65.1 Lymph % (Auto) 25.6 [place] % (Auto) 6.8 Eos % (Auto) 1.9 Baso % (Auto) 0.4 Absolute Neuts (auto) 3.7 Absolute Lymphs (auto) 1.46 Nucleated RBC % 0 Sodium 137 Potassium 3.8 Chloride 107 Carbon Dioxide 25.0 Anion Gap 5 BUN 9 Creatinine 0.92 Estim Creat Clear Calc 70.54 Est GFR (MDRD) Af Amer 96 Est GFR (MDRD) Non-Af 79 BUN/Creatinine Ratio 9.8 L Glucose 101 Calcium 9.0 TSH 1.98 - EKG Initial EKG Interpretation: Sinus Rhythm - Sinus 82 with no acute ischemia. - Medical Decision Making Patient was placed on threat monitoring analyst on arrival. She has had no arrhythmias while here. EKG and chest x-ray are unremarkable. Blood work is normal. Advised the patient that if she has recurrent symptoms since she is able to come to the ER well it is occurring we can get an EKG at that time. She was advised if she feels lightheaded or dizzy with this she should call 911. If she has recurrent brief episodes she is to follow with her PCP for possible Holter monitor to see if we can catch an episode. Patient voices understanding and agreement. ED Disposition - Plan for ED Patient: Disposition: Home or Assisted Living Diagnosis: Palpitations Instructions: ED Palpitations Referrals: Igor Hurley MD [Primary Care Provider] - 1-2 Weeks
[2020-03-22 11:52] VITALS: BP 129/80; PULSE 93; RESP 19; O2SAT 98
[2020-03-22 12:10] LABS: Absolute Lymphocyte Count 1.46 X10^3/uL (0.83-4.51); Absolute Neutrophil Count 3.7 X10^3/uL (2.0-7.7); Basophil# 0.02 X10^3/uL; Basophil% 0.4 % (0-1); Eosinophil# 0.11 X10^3/uL; Eosinophils% 1.9 % (0-5); Hematocrit 37.8 % (37-47); Hemoglobin 13.5 g/dL (12.0-15.0); Lymphocyte # 1.46 X10^3/ul (4.0); Lymphocyte % 25.6 % (19-41); Mean Corp Hgb Conc 35.7 g/dL (32-36); Mean Corpuscular Volume 86.9 fL (81-99); Mean Platelet Vol. 12.1 fl (6.2-12.0); Monocyte# 0.39 X10^3/uL; Monocyte% 6.8 % (0-10); NRBC Flagged by Analyzer 0 % (0-5); Neutrophil # 3.71 X10^3/uL (2.7-7.7); Neutrophil % 65.1 % (47-70); Platelet Count 160 K/mm3 (150-450); RBC Distribution Width CV 11.9 % (11.6-14.6); RBC Distribution Width SD 37.7 fl (35.1-43.9); Red Blood Count 4.35 M/mm3 (4.2-5.4); White Blood Count 5.7 K/mm3 (4.4-11.0)
[2020-03-22 12:37] LABS: Anion Gap 5 (5-15); BUN 9 mg/dL (7-18); BUN/Creat Ratio 9.8 RATIO (10-20); Chloride 107 mmol/L (98-107); Creatinine, Serum 0.92 mg/dL (0.55-1.02); EST Glomerular Filtration Rate 79 mL/min (>60); Est Glom Filt Rate - Afr Amer 96 mL/min (>60); Estimated Creatinine Clearance 70.54 ml/min; Glucose 101 mg/dL (74-106); Potassium 3.8 mmol/L (3.5-5.1); Sodium Level 137 mmol/L (136-145); Thyroid Stim Hormone (TSH) 1.98 uIU/mL (0.358-3.74)
[2020-03-22 12:48] VITALS: BP 121/60; PULSE 76; RESP 18; O2SAT 97
== END 2020-03-22 12:54 | disposition home or self-care (01) ==
PROVIDERS: Emergency Provider Emergency Medicine; PCP Family Medicine
DX: R00.2 Palpitations (principal); F17.200 Nicotine dependence, unspecified, uncomplicated
CPT/HCPCS: 71045; 80048; 84443; 85025; 93005; 99284; A4216

== ENCOUNTER → 2020-06-11 | Outpatient (CLI) | payer MEDICAID, SELFPAY | END | disposition home or self-care (01) | LOC: LABSPEC 16:54 | PROVIDERS: PCP Family Medicine; Visit Provider Obstetrics & Gynecology | DX: R30.0 Dysuria (principal); R35.0 Frequency of micturition | CPT/HCPCS: 87086; 87088 ==

== ENCOUNTER → 2020-09-30 | Outpatient (CLI) | payer MEDICAID, SELFPAY ==
[2020-10-13 20:36] LABS: HPV Reflexed? NOT INDICATED
== END | disposition home or self-care (01) ==
PROVIDERS: PCP Family Medicine; Referring Provider Obstetrics & Gynecology; Visit Provider Obstetrics & Gynecology
DX: Z12.4 Encounter for screening for malignant neoplasm of cervix (principal)
CPT/HCPCS: 88175; G0145

== ENCOUNTER 2021-02-10 11:56 | Observation (INO) | payer MEDICAID, SELFPAY ==
[2021-02-10 11:57] VITALS: BP 148/87; PULSE 99; RESP 16; TEMP 36.1; O2SAT 99; BMI 34.2
[2021-02-10 12:12] VITALS: BP 126/66; PULSE 96; RESP 28; O2SAT 98
--- NOTE | 2021-02-10 12:15 | RAD_ITS ---
STUDY: X-RAY CHEST REASON FOR EXAM: Female, 25 years old. Chest pain TECHNIQUE: Single AP portable view of the chest. COMPARISON: Comparison is made with prior study dated 03/22/2020. FINDINGS: EKG electrodes are seen. The lungs are clear and expanded. There is no demonstrated pleural abnormality. Normal size heart. Normal mediastinum and angelina. Normal visualized pulmonary arteries. Normal visualized aortic arch and descending thoracic aorta. Normal visualized thoracic spine. Normal visualized ribs, clavicles, and shoulders. There is no demonstrated abnormality of the visualized soft tissue structures of the upper abdomen. RAD/Chest 1 View (Portable) IMPRESSION: Normal x-ray examination of the chest. Electronically Signed: Arnol Holbrook MD at 12:35 EDT , Service support ,
[2021-02-10] MEDS: Aspirin 325 MG Tablet PO (12:21)
--- NOTE | 2021-02-10 12:23 | EX.ED.DYSGE1 ---
HPI History of Present Illness Chief Complaint: Chest Pain Narrative Narrative: Patient is a 25-year-old female with past medical history of anxiety. She states she was at work today around 9 when she noticed some left-sided chest discomfort which she states is more sharp and stabbing in nature. She states the pain has been constant since its onset and as is not resolved she has concerned this could be cardiac in nature. She denies any family history of cardiac disease at a young age or illicit drug use. She denies any recent trauma or excessive activity. She states that she was unsure if this was anxiety related or truly cardiac in nature and therefore comes to the hospital for evaluation [facility] Home Medications acetaminophen 500 - 1,000 mg PO DAILY PRN 02/10/21 [History Last Taken Unknown] desog-e.estradiol/e.estradiol [Volnea (28)] 2 tab PO DAILY 02/10/21 [History Last Taken 02/09/21 17:30] ibuprofen 800 mg PO DAILY PRN PRN 02/10/21 [History Last Taken 02/09/21] Allergy/AdvReac Type Severity Reaction Status Date / Time Sulfa (Sulfonamide Allergy Hives Verified 02/10/21 11:58 Antibiotics) tramadol Allergy Vomiting Verified 02/10/21 11:58 Surgical History (Updated 02/10/21 @ 12:18 by Melina Armijo) H/O tubal ligation History of tonsillectomy Social History Smoking Status: Current every day smoker tobacco type: cigarettes ROS ROS ED Constitutional Constitutional ED: Denies chills or fever(s) ENT ENT ED: Denies sore throat Cardiovascular Cardiovascular: Reports chest pain; Denies palpitations or racing heartbeat Respiratory/Chest Respiratory/Chest: Denies cough or dyspnea Gastrointestinal Gastrointestinal: Denies abdominal pain, diarrhea, nausea or vomiting Genitourinary Genitourinary ED: Denies dysuria Musculoskeletal Musculoskeletal: Denies myalgias Integumentary Denies rash Neurologic Neurologic: Denies headache(s) Psychiatric Psychiatric: Reports anxiety Hematologic/Lymphatic Hematologic/Lymphatic: Denies easy bleeding or easy bruising EXAM Physical Exam Const Vital Signs: 02/10/21 11:57 02/10/21 12:12 Temperature 97.0 F L Temperature Source Temporal Pulse Rate 99 96 Respiratory Rate 16 28 H Respiratory Effort Normal Non-Labored Blood Pressure 148/87 H 126/66 H Blood Pressure Mean 107 86 Pulse Ox 99 98 Oxygen Delivery Method Room Air Room Air Positive well nourished and well developed General Appearance ED: well developed HEENT Reports moist mucous membranes Eyes PERRL and EOMs intact bilaterally Neck supple Chest Wall Chest Narrative: Reproducible left anterior chest wall pain with palpation but no bony deformities or crepitance Resp normal respiratory effort and clear to auscultation bilaterally Cardio regular rate and regular rhythm Rate: other Other Details: Radial pulses are +2-4 bilaterally are equal and symmetric GI normal to inspection, nondistended, normoactive bowel sounds, non-tender, non-distended and no masses GI Narrative: No voluntary guarding or rigidity no pulsatile mass Auscultation: normoactive bowel sounds Palpation: soft Extremity normal to inspection Extremity Narrative: No asymmetric edema no pitting edema negative Homans' sign bilaterally Neuro oriented x3 and CN's II-XII intact bilaterally Sensorium / Orientation: alert Motor Exam: strength 5/5 throughout Psych Mood & Affect: anxious Skin no rashes or lesions noted MDM MDM MDM Narrative Medical decision making narrative: Patient presented to the ER and in no acute distress and is low risk for cardiac disease. She does smoke and take oral control however and therefore with sudden onset chest pain there is concern for pulmonary embolus and a D-dimer was added to the cardiac work-up. Troponin is normal as well as EKG but D-dimer is elevated at 0.8 so a CTA was added. CTA reveals no PE but does show pneumomediastinum with a small pneumothorax. Based on these changes patient will need to be watched in the hospital overnight and have repeat images tomorrow morning to ensure that the free air is not worsening. This treatment option was discussed with the patient and she is agreeable and therefore be admitted at this time Lab Data Attestation: I reviewed the patient's lab results. Labs: Laboratory Results - last 24 hr 02/10/21 02/10/21 02/10/21 11:55 12:15 12:15 WBC 13.5 H RBC 4.20 Hgb 12.8 Hct 36.7 L MCV 87.4 MCH 30.5 MCHC 34.9 RDW Std Deviation 38.1 RDW Coeff of Lew 11.9 Plt Count 194 MPV 11.2 Immature Gran % (Auto) 0.300 Neut % (Auto) 81.5 H Lymph % (Auto) 14.5 L [place] % (Auto) 3.3 Eos % (Auto) 0.2 Baso % (Auto) 0.2 Absolute Neuts (auto) 11.0 H Absolute Lymphs (auto) 1.96 Nucleated RBC % 0 PT 12.6 INR 1.0 APTT 26.1 D-Dimer Quant (PE/DVT) 0.79 H* Sodium Potassium Chloride Carbon Dioxide Anion Gap BUN Creatinine Estim Creat Clear Calc Est GFR (MDRD) Af Amer Est GFR (MDRD) Non-Af BUN/Creatinine Ratio Glucose Calcium Troponin I High Sens 02/10/21 12:15 WBC RBC Hgb Hct MCV MCH MCHC RDW Std Deviation RDW Coeff of Lew Plt Count MPV Immature Gran % (Auto) Neut % (Auto) Lymph % (Auto) [place] % (Auto) Eos % (Auto) Baso % (Auto) Absolute Neuts (auto) Absolute Lymphs (auto) Nucleated RBC % PT INR APTT D-Dimer Quant (PE/DVT) Sodium 137 Potassium 3.8 Chloride 110 H Carbon Dioxide 21.0 Anion Gap 6 BUN 7 Creatinine 0.76 Estim Creat Clear Calc 80.57 Est GFR (MDRD) Af Amer 118 Est GFR (MDRD) Non-Af 98 BUN/Creatinine Ratio 9.2 L Glucose 95 Calcium 9.1 Troponin I High Sens 7 Radiography Diagnostic Testing: Clinical Impression(s) from Imaging Studies Chest X-Ray 02/10/21 12:15 IMPRESSION: Normal x-ray examination of the chest. Electronically Signed: Arnol Holbrook MD at 12:35 EDT , Service support , Chest CTA 02/10/21 13:00 IMPRESSION: There is evidence of a pneumomediastinum as well as a tiny loculated pneumothorax along the anterior medial aspect of the left lower lobe. The pneumomediastinum extends into the lower cervical region. N.B. : The above Results were Read Back by Arnol Holbrook MD to Franklin Herrera and understanding confirmed on 02/10/2021 13:56:45 (ET). Electronically Signed: Arnol Holbrook MD at 14:01 EDT , Service support , ADDENDUM: 02/10/21 1408 IMPRESSION: There is evidence of a pneumomediastinum as well as a tiny loculated pneumothorax along the anterior medial aspect of the left lower lobe. The pneumomediastinum extends into the lower cervical region. N.B. : The above Results were Read Back by Arnol Holbrook MD to Franklin Herrera and understanding confirmed on 02/10/2021 13:56:45 (ET). Electronically Signed: Arnol Holbrook MD at 14:01 EDT , Service support , Discharge Plan Triage Chief Complaint: Chest Pain ED Provider: Franklin Herrera Dx/Rx/DC Orders Clinical Impression: Pneumomediastinum, Pneumothorax Prescriptions: No Action desog-e.estradiol/e.estradiol [Volnea (28)] 0.15-0.02 mgx21 /0.01 mg x 5 tablet 2 tab PO DAILY RF: 0 acetaminophen 500 mg Tablet 500 - 1,000 mg PO DAILY PRN (Reason: Pain) RF: 0 ibuprofen 200 mg Tablet 800 mg PO DAILY PRN PRN (Reason: Pain) RF: 0 Primary Care Provider: Igor Hurley Referrals: Igor Hurley MD [Primary Care Provider] - Disposition Disposition: Acute Care [facility]
[2021-02-10 12:24] LABS: Absolute Lymphocyte Count 1.96 X10^3/uL (0.83-4.51); Basophil# 0.03 X10^3/uL; Basophil% 0.2 % (0-1); Eosinophil# 0.03 X10^3/uL; Eosinophils% 0.2 % (0-5); Hematocrit 36.7 % (37-47); Hemoglobin 12.8 g/dL (12.0-15.0); Lymphocyte # 1.96 X10^3/ul (0.83-4.51); Lymphocyte % 14.5 % (19-41); Mean Corp Hgb Conc 34.9 g/dL (32-36); Mean Corpuscular Hgb 30.5 pg (27.0-32.0); Mean Corpuscular Volume 87.4 fL (81-99); Mean Platelet Vol. 11.2 fl (6.2-12.0); Monocyte# 0.44 X10^3/uL; Monocyte% 3.3 % (0-10); NRBC Flagged by Analyzer 0 % (0-5); Neutrophil # 10.99 X10^3/uL (2.7-7.7); Neutrophil % 81.5 % (47-70); Platelet Count 194 K/mm3 (150-450); RBC Distribution Width CV 11.9 % (11.6-14.6); RBC Distribution Width SD 38.1 fl (35.1-43.9); White Blood Count 13.5 K/mm3 (4.4-11.0)
[2021-02-10 12:39] LABS: D-Dimer Quantitative (DVT/PE) 0.79 FEU/ug/m (0.27-0.49)
--- NOTE | 2021-02-10 12:41 | EKG12_ITS ---
Test Reason : CP Blood Pressure : / mmHG Vent. Rate : 089 BPM Atrial Rate : 089 BPM P-R Int : 122 ms QRS Dur : 082 ms QT Int : 368 ms P-R-T Axes : 050 032 042 degrees QTc Int : 447 ms Normal sinus rhythm Normal ECG Confirmed by BRETT ZAMARRIPA, ROBB ([id number]), book editor WAYLON NAIK ([id number]) on 02/15/2021 9:59:09 AM Referred By: HEATHER//DEYSI Confirmed By:JAMAICA WEST MD
[2021-02-10 12:42] LABS: Anion Gap 6 (5-15); BUN 7 mg/dL (7-18); BUN/Creat Ratio 9.2 RATIO (10-20); Calcium,Total 9.1 mg/dL (8.5-10.1); Chloride 110 mmol/L (98-107); Creatinine, Serum 0.76 mg/dL (0.55-1.02); EST Glomerular Filtration Rate 98 mL/min (>60); Est Glom Filt Rate - Afr Amer 118 mL/min (>60); Estimated Creatinine Clearance 80.57 ml/min; Glucose 95 mg/dL (74-106); Potassium 3.8 mmol/L (3.5-5.1); Sodium Level 137 mmol/L (136-145); Troponin-I HS 7 pg/mL (3.0-54.0)
--- NOTE | 2021-02-10 13:00 | CT_ITS ---
STUDY: CTA CHEST REASON FOR EXAM: Female, 25 years old. Chest pain with elevated D-dimer RADIATION DOSAGE (If Supplied By Facility): CTDIvol = ( 12.27 ) mGy, DLP = ( 491.63 ) mGycm TECHNIQUE: The examination was performed with the intravenous administration of IV 100mL Isovue-370. Post-processing of the angiographic images was performed, with multiplanar reformation and 3D reconstruction. Individualized dose optimization techniques were used for this CT. COMPARISON: Comparison is made with prior chest radiograph done earlier today. FINDINGS: Normal enhancement of the main pulmonary artery and right and left pulmonary arteries. Normal enhancement of the bilateral peripheral pulmonary arteries. There is no demonstrated pulmonary embolism. Normal thoracic aorta and visualized great vessels. There is no demonstrated aortic dissection. Normal heart and pericardium. There is evidence of a pneumomediastinum. The area extends into the lower cervical region. Normal hilar regions. Normal visualized trachea and bronchi. The lungs are well expanded. Normal pulmonary parenchyma. Tiny anterior medial pneumothorax along the anterior medial aspect of the left lower lobe. Normal chest wall structures. Normal osseous structures. Normal visualized upper abdomen. CT/CTA Chest W/WO Contrast IMPRESSION: There is evidence of a pneumomediastinum as well as a tiny loculated pneumothorax along the anterior medial aspect of the left lower lobe. The pneumomediastinum extends into the lower cervical region. N.B. : The above Results were Read Back by Arnol Holbrook MD to Franklin Herrera and understanding confirmed on 02/10/2021 13:56:45 (ET). Electronically Signed: Arnol Holbrook MD at 14:01 EDT , Service support ,
[2021-02-10] MEDS: 0.9% Normal Saline 1,000 ML 999 ML IV (13:18)
[2021-02-10 13:34] LABS: Prothrombin Time (Protime)PT. 12.6 SECONDS (11.7-14.9)
[2021-02-10 13:35] LABS: Partial Thromboplast Time 26.1 Seconds (24.1-36.2)
--- NOTE | 2021-02-10 14:40 | NURSING ---
PCU OBS WHITE PNEUMOMEDIASTIUM WITH PNEUMOTHORAX
[2021-02-10 14:46] VITALS: BP 116/75; PULSE 95; RESP 26; TEMP 36.7; O2SAT 98
--- NOTE | 2021-02-10 14:50 | PCM.HP.STD ---
HPI - General General Date of Admission: 02/10/21 Date of Service: 02/10/21 Chief Complaint: Left sided chest pain HPI Narrative The patient is a 25 y/o F w/ PMHx: Obesity, Tobacco use who presents to the [facility] ED on 02/10/21 with history of sudden onset left-sided chest discomfort with radiation up into the middle neck region with sensation of discomfort also with yawning and swallowing described as a stabbing pain in nature initially rated 8 out of 10 in severity when it started, eventually decreasing to 4-10 in severity upon evaluation with no associated dyspnea, nausea, emesis or diaphoresis. Patient denies any recent injuries or traumas. She denies any recent profound coughing fits. She denies any Covid type symptoms. Work-up in the ED included T 98, heart rate 95, BP 116/75, respiratory rate 26, 98% on room air, CBC with WBC 13.5, hemoglobin 12.8, platelet 194 with left shift, coags unremarkable except D-dimer 0.79, BMP with chloride 110 otherwise not marked appearing, initial high-sensitivity troponin 7, chest x-ray with no acute cardiopulmonary findings however follow-up CTPA with evidence of pneumomediastinum as well as a tiny loculated pneumothorax along the anterior medial aspect of left lower robe with a pneumomediastinum extending into the lower cervical region. In the ED patient had been administered aspirin and normal saline. [facility] Medical History Obesity (BMI 30.0-34.9) Tobacco use Home Medications acetaminophen 500 - 1,000 mg PO DAILY PRN 02/10/21 [History Last Taken Unknown] desog-e.estradiol/e.estradiol [Volnea (28)] 2 tab PO DAILY 02/10/21 [History Last Taken 02/09/21 17:30] ibuprofen 800 mg PO DAILY PRN PRN 02/10/21 [History Last Taken 02/09/21] Allergy/AdvReac Type Severity Reaction Status Date / Time Sulfa (Sulfonamide Allergy Hives Verified 02/10/21 11:58 Antibiotics) tramadol Allergy Vomiting Verified 02/10/21 11:58 Family History (Updated 02/10/21 @ 15:[address] Luz Lawton MD) Father Diabetes other (Patient denies any marked maternal family history including HD, DM, CA.) Surgical History (Updated 02/10/21 @ 12:18 by Melina Armijo) H/O tubal ligation History of tonsillectomy Social History (Updated 02/10/21 @ 15:[address] Luz Lawton MD) household members: significant other and children Smoking Status: Current every day smoker tobacco type: cigarettes Smoking packs per day: 0.75 Smoking cigarettes per day: 15.0 alcohol intake: never substance use type: does not use ROS ROS Narrative Admission Review of Systems: CONSTITUTIONAL: No weight loss, fever, chills, + weakness or fatigue. HEENT: + Discomfort with yawning/swallowing. Eyes: No visual loss, blurred vision, double vision or yellow sclerae. Ears, Nose, Throat: No hearing loss, sneezing, congestion, runny nose or sore throat. SKIN: No rash or itching, lesions, wounds. CARDIOVASCULAR: + chest pain, chest pressure or chest discomfort, No palpitations, edema, orthopnea, syncopal events. RESPIRATORY: No shortness of breath, cough or sputum, wheezing, hemoptysis. GASTROINTESTINAL: No anorexia, nausea, vomiting or diarrhea, abdominal pain, melena, BRBPR. GENITOURINARY: No dysuria, frequency, urgency or retention. NEUROLOGICAL: No headache, dizziness, syncope, paralysis, ataxia, numbness or tingling in the extremities, focal weakness, change in bowel or bladder control, seizure. MUSCULOSKELETAL: No muscle, back pain, joint pain or stiffness. HEMATOLOGIC: No anemia, bleeding or bruising. LYMPHATICS: No enlarged nodes. No history of splenectomy. PSYCHIATRIC: No history of depression or anxiety. ENDOCRINOLOGIC: No reports of sweating, cold or heat intolerance. No polyuria or polydipsia. ALLERGIES: No history of asthma, hives, eczema or rhinitis. Vital Signs Vital Signs Vital Signs: 02/10/21 11:57 02/10/21 12:12 Temperature 97.0 F L Temperature Source Temporal Pulse Rate 99 96 Respiratory Rate 16 28 H Respiratory Effort Normal Non-Labored Blood Pressure 148/87 H 126/66 H Blood Pressure Mean 107 86 Pulse Ox 99 98 Oxygen Delivery Method Room Air Room Air Weight Weight: 175 lb Body Mass Index (BMI) 34.2 Physical Exam Narrative Physical Examination: General: Awake, alert, oriented x 3 and cooperative, seated upright in the ED bed in no apparent distress, notes discomfort is improving. Skin: Normal color, normal turgor, no icterus, no cyanosis. HEENT: AT/NC, EOMI, PERRLA, mildly dry MM, no carotid bruits or JVD noted. Lungs: Diminished, mildly decreased effort likely secondary to elicited discomfort with deep inspiratory effort, no rales, ronchi or wheezing. Heart: Mildly tachycardic with regular rhythm; no gallop, rub audible. Abdomen: Soft, obese, NTTP, ND, normal BS, no HSM. Extremities: No cyanosis, clubbing, or edema. Neurological: Patient awake, alert, oriented as noted, cognitive function intact; pupils equally reactive to light and accommodation, cranial nerves II-XII grossly normal, moving all 4 extremities, no focal deficits, strength mild global decrease secondary to acute presentation. Psychiatric: Affect appears fatigued and mildly uncomfortable otherwise normal, no acute evidence of depressive or anxiety feelings. Results Lab / Micro Data Result Diagrams: 02/10/21 12:15 02/10/21 12:15 Labs: Laboratory Results - last 24 hr 02/10/21 11:55: PT 12.6, INR 1.0, APTT 26.1 02/10/21 12:15: WBC 13.5 H, RBC 4.20, Hgb 12.8, Hct 36.7 L, MCV 87.4, MCH 30.5, MCHC 34.9, RDW Std Deviation 38.1, RDW Coeff of Lew 11.9, Plt Count 194, MPV 11.2, Immature Gran % (Auto) 0.300, Neut % (Auto) 81.5 H, Lymph % (Auto) 14.5 L, [place] % (Auto) 3.3, Eos % (Auto) 0.2, Baso % (Auto) 0.2, Absolute Neuts (auto) 11.0 H, Absolute Lymphs (auto) 1.96, Nucleated RBC % 0 02/10/21 12:15: D-Dimer Quant (PE/DVT) 0.79 H* 02/10/21 12:15: Sodium 137, Potassium 3.8, Chloride 110 H, Carbon Dioxide 21.0, Anion Gap 6, BUN 7, Creatinine 0.76, Estim Creat Clear Calc 80.57, Est GFR (MDRD) Af Amer 118, Est GFR (MDRD) Non-Af 98, BUN/Creatinine Ratio 9.2 L, Glucose 95, Calcium 9.1, Troponin I High Sens 7 Radiology Impression Chest X-Ray 02/10/21 12:15 IMPRESSION: Normal x-ray examination of the chest. Electronically Signed: Arnol Holbrook MD at 12:35 EDT , Service support , Chest CTA 02/10/21 13:00 IMPRESSION: There is evidence of a pneumomediastinum as well as a tiny loculated pneumothorax along the anterior medial aspect of the left lower lobe. The pneumomediastinum extends into the lower cervical region. N.B. : The above Results were Read Back by Arnol Holbrook MD to Franklin Herrera and understanding confirmed on 02/10/2021 13:56:45 (ET). Electronically Signed: Arnol Holbrook MD at 14:01 EDT , Service support , ADDENDUM: 02/10/21 1408 IMPRESSION: There is evidence of a pneumomediastinum as well as a tiny loculated pneumothorax along the anterior medial aspect of the left lower lobe. The pneumomediastinum extends into the lower cervical region. N.B. : The above Results were Read Back by Arnol Holbrook MD to Franklin Herrera and understanding confirmed on 02/10/2021 13:56:45 (ET). Electronically Signed: Arnol Holbrook MD at 14:01 EDT , Service support , Assessment & Plan Assessment/Plan (1) Pneumomediastinum: (2) Pneumothorax: QUALIFIERS: Pneumothorax type: spontaneous, primary Qualified Code(s): J93.11 - Primary spontaneous pneumothorax PLAN: The patient is a 25 y/o F w/ PMHx: Obesity, Tobacco use who presents to the [facility] ED on 02/10/21 with history of sudden onset left-sided chest discomfort with radiation up into the middle neck region with sensation of discomfort also with yawning and swallowing described as a stabbing pain in nature initially rated 8 out of 10 in severity when it started, eventually decreasing to 4-10 in severity upon evaluation with no associated dyspnea, nausea, emesis or diaphoresis. 1. Acute onset chest pain secondary to acute spontaneous small loculated pneumothorax, left lower lobe as well as evidence of pneumomediastinum: Unclear etiology, EKG in ED sinus rhythm no acute evidence of ischemia, CXR w/ no acute cardiopulmonary findings with follow-up CTPA as noted, initial trop normal x1. Will admit to PCU, place on a monitored bed, cycle enzymes to be cautious, will obtain Covid PCR, plan repeat PA and lateral in a.m., maintain on supplemental oxygen in the interim. Discussed case with general surgery in case pneumothorax does increase in size in chest tube is required, will also request pulmonary involvement. 2. Obesity: Weight loss and lifestyle changes encouraged. 3. Tobacco Abuse: Encouraged cessation, inpatient consultation per RT, NR if desired. 4. DVT prophylaxis: Unless other significant work-up alters presentation will hold off on prophylaxis as low risk and in case need for chest tube placement if worsened pneumothoraces. Charges/Coding Visit Charges OBSV E&M: 54525 Initial observation care L3
[2021-02-10 15:06] VITALS: PULSE 79
[2021-02-10 15:25] VITALS: BMI 34.5
[2021-02-10 15:27] LABS: Magnesium 1.9 mg/dL (1.6-2.6)
--- NOTE | 2021-02-10 16:17 | CASEMGMT ---
According to the [facility] website, the following are in-network tertiary facilities: [facility], [place], [facility], [place], [facility], [facility], [place], [facility], and . Cristina THEODORE CM
[2021-02-10 16:30] LABS: Troponin-I HS 9 pg/mL (3.0-54.0)
--- NOTE | 2021-02-10 16:33 | CON.PCM.SX_ITS ---
Assessment & Plan Assessment/Plan (1) Pneumomediastinum: (2) Pneumothorax: QUALIFIERS: Pneumothorax type: spontaneous, primary Qualified Code(s): J93.11 - Primary spontaneous pneumothorax PLAN: Unsure of the cause of patient's pneumomediastinum. Patient does not give any good history of event that could lead to this. Recommend patient be transferred [facility] with [facility] for further evaluation. Did discuss with patient she had no further questions time. Wilda Dwyer M.D. Pager: [phone] [facility] [address] [place] [address], Outpatient Pavilion, [address] [place] [address] Office: [phone] HPI Consult Data Date of Consult: 02/10/21 HPI Narrative HPI Narrative: YOUSUF MORA, is a 25 F who presents to the ER due to chest pain which started while she was at work. Patient states she did have anything to eat today only had a little bit of coffee. Patient states she occasionally has a little bit of chest discomfort but she does have anxiety so she thought that could be part of it. Patient is a smoker and does occasionally cough but denies any major coughing attack or sneezing prior to the chest pain. Currently patient states the pain is more upper sternum before it was across the entire upper chest. Patient denies any difficulty breathing. Patient denies any history of previous episodes. Patient had an x-ray which was read as normal, CT of the chest showed pneumomediastinum going up to the cervical region and very small left medial anterior pneumothorax. [facility] Medical History Obesity (BMI 30.0-34.9) Tobacco use Home Medications acetaminophen 500 - 1,000 mg PO DAILY PRN 02/10/21 [History Last Taken Unknown] desog-e.estradiol/e.estradiol [Volnea (28)] 2 tab PO DAILY 02/10/21 [History Last Taken 02/09/21 17:30] ibuprofen 800 mg PO DAILY PRN PRN 02/10/21 [History Last Taken 02/09/21] Allergy/AdvReac Type Severity Reaction Status Date / Time egg Allergy Upset Verified 02/10/21 15:29 Stomach Sulfa (Sulfonamide Allergy Hives Verified 02/10/21 11:58 Antibiotics) tramadol Allergy Vomiting Verified 02/10/21 11:58 Family History (Updated 02/10/21 @ 15:[address] Luz Lawton MD) Father Diabetes Family History other Surgical History (Updated 02/10/21 @ 12:18 by Melina Armijo) H/O tubal ligation History of tonsillectomy Social History (Updated 02/10/21 @ 15:[address] Luz Lawton MD) household members: significant other and children Smoking Status: Current every day smoker tobacco type: cigarettes alcohol intake: never substance use type: does not use ROS Constitutional Constitutional: Denies fever(s) or headache(s) ENT HEENT: Denies dizziness Cardiovascular Cardiovascular: Denies chest pain Respiratory/Chest Respiratory/Chest: Reports other Details: upper chest pain over sternum ; Denies dyspnea or shortness of breath at rest Gastrointestinal Gastrointestinal: Denies abdominal pain, constipation, diarrhea, dry heaves, heartburn, hematemesis, nausea or vomiting Genitourinary Genitourinary: Denies burning urination Musculoskeletal Musculoskeletal: Denies joint pain Integumentary Integumentary: Denies rash Neurologic Neurologic: Denies focal weakness Endocrine Endocrinology: Denies palpitations Hematologic/Lymphatic Hematologic/Lymphatic: Denies anemia, easy bleeding or easy bruising Physical Exam Const alert, oriented x3 and no apparent distress HEENT normocephalic and head/scalp atraumatic Neck Neck Narrative: No crepitus Resp normal respiratory effort Auscultation: Negative for crackles or wheezes Cardio regular rate GI soft to palpation and non-tender; Negative for non-distended Palpation: Negative for guarding Extremity no clubbing, cyanosis or edema Extremity Narrative: no c/c/e Skin no rashes or lesions noted Neuro CN's II-XII intact bilaterally Psych mental status grossly normal Lab / Micro Data Result Diagrams: 02/10/21 12:15 02/10/21 12:15 Labs: Laboratory Results - last 24 hr 02/10/21 11:55: PT 12.6, INR 1.0, APTT 26.1 02/10/21 12:15: WBC 13.5 H, RBC 4.20, Hgb 12.8, Hct 36.7 L, MCV 87.4, MCH 30.5, MCHC 34.9, RDW Std Deviation 38.1, RDW Coeff of Lew 11.9, Plt Count 194, MPV 11.2, Immature Gran % (Auto) 0.300, Neut % (Auto) 81.5 H, Lymph % (Auto) 14.5 L, [place] % (Auto) 3.3, Eos % (Auto) 0.2, Baso % (Auto) 0.2, Absolute Neuts (auto) 11.0 H, Absolute Lymphs (auto) 1.96, Nucleated RBC % 0 02/10/21 12:15: D-Dimer Quant (PE/DVT) 0.79 H* 02/10/21 12:15: Sodium 137, Potassium 3.8, Chloride 110 H, Carbon Dioxide 21.0, Anion Gap 6, BUN 7, Creatinine 0.76, Estim Creat Clear Calc 80.57, Est GFR (MDRD) Af Amer 118, Est GFR (MDRD) Non-Af 98, BUN/Creatinine Ratio 9.2 L, Glucose 95, Calcium 9.1, Troponin I High Sens 7 02/10/21 12:15: Magnesium 1.9 02/10/21 15:51: Troponin I High Sens 9 Radiology Impression Chest X-Ray 02/10/21 12:15 IMPRESSION: Normal x-ray examination of the chest. Electronically Signed: Anrol Holbrook MD at 12:35 EDT , Service support , Chest CTA 02/10/21 13:00 IMPRESSION: There is evidence of a pneumomediastinum as well as a tiny loculated pneumothorax along the anterior medial aspect of the left lower lobe. The pneumomediastinum extends into the lower cervical region. N.B. : The above Results were Read Back by Arnol Holbrook MD to Franklin Herrera and understanding confirmed on 02/10/2021 13:56:45 (ET). Electronically Signed: Arnol Holbrook MD at 14:01 EDT , Service support , ADDENDUM: 02/10/21 1408 IMPRESSION: There is evidence of a pneumomediastinum as well as a tiny loculated pneumothorax along the anterior medial aspect of the left lower lobe. The pneumomediastinum extends into the lower cervical region. N.B. : The above Results were Read Back by Arnol Holbrook MD to Franklin Herrera and understanding confirmed on 02/10/2021 13:56:45 (ET). Electronically Signed: Arnol Holbrook MD at 14:01 EDT , Service support , Charges/Coding Visit Charges Inpatient E&M: 82323 Init Hosp L3
[2021-02-10] MEDS: Ketorolac 15 MG/ML Vial IV ×2 (16:49→23:23)
--- NOTE | 2021-02-10 17:27 | PCM.DC.SUM ---
Providers Date of Admission: 02/10/21 Primary Care Physician: Dr. 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 Routine Consulting Provider: Suraj Stack Reason for Consult: Small L PTX, pneumonmediastinum extending into cervical region, unclear domo EMERGENT Consult: No Notified: Yes Date Notified: 02/10/21 Time Notified: 15:13 Method of Notification: cortext Reason For Visit: PNEUMOMEDIASTINUM WITH PNEUMOTHORAX Diagnosis Discharge Diagnosis (1) Pneumomediastinum: Status: Acute Code(s): J98.2 - Interstitial emphysema (2) Pneumothorax: Status: Acute Code(s): J93.9 - Pneumothorax, unspecified Qualifiers: Pneumothorax type: spontaneous, primary Qualified Code(s): J93.11 - Primary spontaneous pneumothorax Medications at Discharge Home Medications acetaminophen 500 - 1,000 mg PO DAILY PRN 02/10/21 desog-e.estradiol/e.estradiol [Volnea (28)] 2 tab PO DAILY 02/10/21 ibuprofen 800 mg PO DAILY PRN PRN 02/10/21 Hospital Course Operations None Procedures EKG Summary of Care Provided Minutes Spent on Discharge: 45 Hospital Course: The patient is a 25 y/o F w/ PMHx: Obesity, Tobacco use who presents to the [facility] ED on 02/10/21 with history of sudden onset left-sided chest discomfort with radiation up into the middle neck region with sensation of discomfort also with yawning and swallowing described as a stabbing pain in nature initially rated 8 out of 10 in severity when it started, eventually decreasing to 4-10 in severity upon evaluation with no associated dyspnea, nausea, emesis or diaphoresis. Patient denies any recent injuries or traumas. She denies any recent profound coughing fits. She denies any Covid type symptoms. Work-up in the ED included T 98, heart rate 95, BP 116/75, respiratory rate 26, 98% on room air, CBC with WBC 13.5, hemoglobin 12.8, platelet 194 with left shift, coags unremarkable except D-dimer 0.79, BMP with chloride 110 otherwise not marked appearing, initial high-sensitivity troponin 7, chest x-ray with no acute cardiopulmonary findings however follow-up CTPA with evidence of pneumomediastinum as well as a tiny loculated pneumothorax along the anterior medial aspect of left lower robe with a pneumomediastinum extending into the lower cervical region. In the ED patient had been administered aspirin and normal saline. Discussed case with Surgery upon admission while patient in the ED but given in the OR image was not reviewed. Patient transitioned to the PCU, placed on a monitored bed, cycled enzymes to be cautious which remained negative, requested COVID PCR with initial plan for supplemental oxygen and repeat AM CXR. Discussed case also with Pulm/CC. Once surgery was available and out of OR they reviewed CTPA and noted concern over possible alternate etiology for the pneumomediastinum aside her PTX including concern for esophageal or tracheal injury/perforation. Requested she remain NPO which was instituted immediately. Requested transfer be arranged at [facility] for her in case CT surgery necessary. Weight / BMI Weight Weight: 176 lb 12.972 oz Body Mass Index (BMI) 34.5 ABG / Lab / Microbiology Data Result Diagrams: 02/10/21 12:15 02/10/21 12:15 Laboratory: Laboratory Results - last 24 hr 02/10/21 11:55: PT 12.6, INR 1.0, APTT 26.1 02/10/21 12:15: WBC 13.5 H, RBC 4.20, Hgb 12.8, Hct 36.7 L, MCV 87.4, MCH 30.5, MCHC 34.9, RDW Std Deviation 38.1, RDW Coeff of Lew 11.9, Plt Count 194, MPV 11.2, Immature Gran % (Auto) 0.300, Neut % (Auto) 81.5 H, Lymph % (Auto) 14.5 L, [place] % (Auto) 3.3, Eos % (Auto) 0.2, Baso % (Auto) 0.2, Absolute Neuts (auto) 11.0 H, Absolute Lymphs (auto) 1.96, Nucleated RBC % 0 02/10/21 12:15: D-Dimer Quant (PE/DVT) 0.79 H* 02/10/21 12:15: Sodium 137, Potassium 3.8, Chloride 110 H, Carbon Dioxide 21.0, Anion Gap 6, BUN 7, Creatinine 0.76, Estim Creat Clear Calc 80.57, Est GFR (MDRD) Af Amer 118, Est GFR (MDRD) Non-Af 98, BUN/Creatinine Ratio 9.2 L, Glucose 95, Calcium 9.1, Troponin I High Sens 7 02/10/21 12:15: Magnesium 1.9 02/10/21 15:51: Troponin I High Sens 9 Radiography Diagnostic Testing: Radiology Impression Chest X-Ray 02/10/21 12:15 IMPRESSION: Normal x-ray examination of the chest. Electronically Signed: Arnol Holbrook MD at 12:35 EDT , Service support , Chest CTA 02/10/21 13:00 IMPRESSION: There is evidence of a pneumomediastinum as well as a tiny loculated pneumothorax along the anterior medial aspect of the left lower lobe. The pneumomediastinum extends into the lower cervical region. N.B. : The above Results were Read Back by Arnol Holbrook MD to Franklin Herrera and understanding confirmed on 02/10/2021 13:56:45 (ET). Electronically Signed: Arnol Holbrook MD at 14:01 EDT , Service support , ADDENDUM: 02/10/21 1408 IMPRESSION: There is evidence of a pneumomediastinum as well as a tiny loculated pneumothorax along the anterior medial aspect of the left lower lobe. The pneumomediastinum extends into the lower cervical region. N.B. : The above Results were Read Back by Arnol Holbrook MD to Franklin Herrera and understanding confirmed on 02/10/2021 13:56:45 (ET). Electronically Signed: Arnol Holbrook MD at 14:01 EDT , Service support , Meaningful Use Info Meaningful Use Diagnoses (Choose all that apply): None applicable Discharge Plan Admission Admit Date/Time: 02/10/21 14:50 Attending Provider: Luz Lawton Primary Care Provider: Igor Hurley Consulting Providers: Wilda Dwyer ; Suraj Stack Discharge Orders/Prescriptions Prescriptions: No Action desog-e.estradiol/e.estradiol [Volnea (28)] 0.15-0.02 mgx21 /0.01 mg x 5 tablet 2 tab PO DAILY RF: 0 acetaminophen 500 mg Tablet 500 - 1,000 mg PO DAILY PRN (Reason: Pain) RF: 0 ibuprofen 200 mg Tablet 800 mg PO DAILY PRN PRN (Reason: Pain) RF: 0 Referrals / Follow Up: Igor Hurley MD [Primary Care Provider] - Disposition Discharge Orders: Discharge Patient (Routine); Ordered 02/10/21 Ordered By: Dr. Luz Lawton Charges/Coding Visit Charges OBSV E&M: 32447 Observ/hosp same date L2 ([place] [address])
--- NOTE | 2021-02-10 18:52 | NURSING ---
Pt resting in bed awake. had just returned to the bed from the bathroom. patient denies further needs at this time.
[2021-02-10 19:00] VITALS: PULSE 76
[2021-02-10 19:06] LABS: Troponin-I HS 7 pg/mL (3.0-54.0)
[2021-02-10 19:15] LABS: Amphetamine Urine VISTA NEGATIVE (<1000 ng/mL); Barbiturate Urine VISTA NEGATIVE (< 200 ng/mL); Benzodiazepine Urine VISTA NEGATIVE (< 200 ng/mL); Cocaine Urine VISTA NEGATIVE (< 300 ng/mL); Ecstacy Urine VISTA NEGATIVE (< 500 ng/mL); Methadone Urine VISTA NEGATIVE (< 300 ng/mL); PCP Urine VISTA NEGATIVE (< 25 ng/mL); THC Urine VISTA NEGATIVE (< 50 ng/mL); Vista UDS pH Range 5
[2021-02-10] MEDS: 0.9% Normal Saline 1,000 ML 100 ML IV (19:56)
[2021-02-10] MEDS: 0.9% Saline Lock 10 ML Syringe IV (19:57)
[2021-02-10 20:09] LABS: Probe Check PASS; Specimen Processing Control PASS
[2021-02-10 21:30] VITALS: BP 101/80; PULSE 76; RESP 14; TEMP 36.8; O2SAT 99
[2021-02-11 03:03] VITALS: BP 110/70; PULSE 70; RESP 16; TEMP 36.4; O2SAT 100
--- NOTE | 2021-02-11 03:07 | NURSING ---
02/10 2025 report called to Suzanne THEODORE at [facility]
== END 2021-02-11 03:25 | disposition short-term general hospital (02) ==
LOC: ED 14:40 → PCU 15:08
PROVIDERS: Admitting Provider Family Medicine; Emergency Provider Emergency Medicine; PCP Family Medicine; Visit Provider Family Medicine
DX: J98.2 Interstitial emphysema (principal); J93.11 Primary spontaneous pneumothorax; F17.210 Nicotine dependence, cigarettes, uncomplicated; E66.9 Obesity, unspecified; Z68.34 Body mass index [BMI] 34.0-34.9, adult; Z79.3 Long term (current) use of hormonal contraceptives
CPT/HCPCS: 36415; 71045; 71275; 80048; 80307; 83735; 84484; 85025; 85379; 85610; 85730; 87635; 93005; 96361; 96374; 96376; 99218; 99251; 99285; 99406; J7030; J7050; Q9967; U0005; A4216; G0378; G0463; J3490; U0003

== ENCOUNTER → 2021-10-25 | Outpatient (CLI) | payer MEDICAID, SELFPAY ==
[2021-10-25 17:25] LABS: Hematocrit 39.4 % (37-47); Hemoglobin 12.9 g/dL (12.0-15.0); Mean Corp Hgb Conc 32.7 g/dL (32-36); Mean Corpuscular Hgb 27.7 pg (27.0-32.0); Mean Corpuscular Volume 84.5 fL (81-99); Mean Platelet Vol. 11.8 fl (6.2-12.0); Platelet Count 197 K/mm3 (150-450); RBC Distribution Width CV 15.2 % (11.6-14.6); RBC Distribution Width SD 46.7 fl (35.1-43.9); Red Blood Count 4.66 M/mm3 (4.2-5.4); White Blood Count 7.8 K/mm3 (4.4-11.0)
[2021-10-25 20:34] LABS: Estradiol 11.9 pg/mL; Follicle Stimulating Hormone < 0.2 mIU/mL; Luteinizing Hormone < 0.2 mIU/mL; Prolactin 5.5 ng/mL; T4 Free Direct 0.89 ng/dL (0.76-1.46); Thyroid Stim Hormone (TSH) 2.38 uIU/mL (0.358-3.74)
== END | disposition home or self-care (01) ==
PROVIDERS: PCP Family Medicine; Visit Provider Obstetrics & Gynecology
DX: N93.9 Abnormal uterine and vaginal bleeding, unspecified (principal)
CPT/HCPCS: 82670; 83001; 83002; 84146; 84439; 84443; 85027

== ENCOUNTER 2021-12-06 06:41 | Day surgery (SDC) | payer MEDICAID, SELFPAY ==
[2021-12-05 08:45] VITALS: BP 101/57; BP 118/73; PULSE 48; RESP 16; O2SAT 99
--- NOTE | 2021-12-06 06:52 | HP.PCM.OB_ITS ---
History and Physical Date of Admission: 12/06/21 Chief complaint: Hysteroscopy, dilation and curettage, endometrial ablation History present illness: Patient for hysteroscopy, dilation curettage, endometrial ablation for abnormal uterine bleeding Past medical history: None Medications: None Past surgical history: Tubal ligation, tonsils and adenoids Allergies: Sulfa, tramadol Family history: Denies history DVT or PE Social history: 1 pack/day smoker. Denies alcohol use, drug use Review of systems: Besides above pertinent positives a full review of systems was performed and found to be negative Physical exam: Vitals: Pending General: Normal-appearing no acute distress HEENT: Normocephalic/atraumatic no cervical of adenopathy Cardiac/respiratory: No use of accessory muscles, nonlabored breathing Abdomen: Soft, nontender, nondistended Extremities: No peripheral edema normal peripheral pulses Psych: Normal affect normal demeanor nonpressured speech Assessment plan: 25-year-old for hysteroscopy, dilation and curettage, endometrial ablation for abnormal uterine bleeding. Risk benefits alternatives of the procedure discus sed. All questions were answered and consent was signed.
[2021-12-06] MEDS: Lactated Ringers 1,000 ML 125 ML IV (06:55)
[2021-12-06 07:18] VITALS: BP 118/73; PULSE 78; RESP 16; TEMP 36.6; O2SAT 99; BMI 34.2
--- NOTE | 2021-12-06 08:20 | EMB_PTH ---
PATIENT: YOUSUF MORA LOC: [facility] [place] U#:[id number] AGE/SX: 25/ ROOM: RE12/06/[address]: Dr. Nguyễn Hyatt MD : 1995 BED: DIS: 12/06/2021 SPEC #: [id number] RECD: 12/06/21 10:26 STATUS: RIN REWally #: [id number] ROSITA: 12/06/21 08:[address]: Nguyễn Haytt DEPT: SURGICAL PATHOLOGY RECD BY: Diamond Dobbs ENTERED: 12/06/21 10:49 SP TYPE: ENDOM BX/C GLENN DR: Dr. Igor Hurley MD Tissues: Endometrium, NOS Procedures: Surgery Specimen Level IV HEADER OPERATION: Hysteroscopy, D & C Kiara PRE-OP DIAGNOSIS: Abnormal uterine bleeding TISSUE SUBMITTED: Endometrial curettings MICROSCOPIC DIAGNOSIS Endometrial curettings: Weakly proliferative endometrium. Moderate to marked chronic endometritis. Fragments of benign endocervical mucosa with chronic inflammation. GWEN:sayda 12/07/2021 COMMENT Case has been reviewed in consultation with Dr. Castellano who concurs with the above diagnosis. IDC:AM MICROSCOPIC DESCRIPTION Slides are reviewed. GROSS DESCRIPTION Received in fixative is one container labeled with the patient's name and designated endometrial curettings. The specimen consists of multiple fragments of hemorrhagic soft tissue that in aggregate measure 2 x 2.5 x 0.3 cm. The specimen is totally submitted in one cassette. / GWEN:sayda 12/06/2021 TC:3 CPT: 61654
--- NOTE | 2021-12-06 08:33 | DCINST_ITS ---
Discharge Instructions Diet Discharge Diet: No restrictions Activity Discharge Activity: Return to Normal Activity, May Drive and May Shower May resume sexual activity in: 6-8 weeks Weight Bearing Status: Weight bearing as tolerated Dressing / Incision Call your doctor if your incision/area has: Continuous Slow Oozing and Foul Smelling Discharge Call your doctor if you observe: Fever of 101 or Higher, Shortness of breath and Chest pain Follow Up Care Please Follow Up With: Nguyễn Hyatt MD When: 2 weeks post op Test Results: Test results from this visit will be discussed in further detail at your follow- up appointment, if applicable. Discharge Plan Admission Attending Provider: Nguyễn Hyatt Primary Care Provider: Igor Hurley Discharge Orders/Prescriptions Prescriptions: No Action desog-e.estradiol/e.estradiol [Volnea (28)] 0.15-0.02 mgx21 /0.01 mg x 5 tablet 2 tab PO DAILY Label Comments: take 1 tablet by mouth FROM EACH PACK DAILY Rx Instructions: TAKE 1 TABLET FROM EACH PACK DAILY acetaminophen 500 mg Tablet 500 - 1,000 mg PO DAILY PRN (Reason: Pain) ibuprofen 200 mg Tablet 800 mg PO DAILY PRN PRN (Reason: Pain) Referrals / Follow Up: Igor Hurley MD [Primary Care Provider] - Disposition Disposition (needs filled in before D/C Order can be placed): Home, Self Care
--- NOTE | 2021-12-06 08:33 | PCM.OPRPT ---
Report of Operation Date of Procedure: 12/06/21 Pre-Operative Diagnosis: Abnormal uterine bleeding Post-Operative Diagnosis: Abnormal uterine bleeding Surgery/Procedure Performed:: Hysteroscopy, dilation curettage, endometrial ablation via Kiara Description of Surgical Findings:: Surgeon: Nguyễn Hyatt MD Anesthesia: MAC EBL: 5 cc Urine output: 25 cc IV fluids: 700 cc Complications: None Specimen: Endometrial curettings Findings: Normal cervix, hysteroscopy with no pathology noted. Post procedure hysteroscopy ablation status otherwise no new pathology Consent: Patient with abnormal uterine bleeding elects for hysteroscopy, dilation and curettage, endometrial ablation. Patient understands the risk of the procedure include but are not limited to visceral or vascular injury, prolonged hospitalization, blood loss and need for transfusion, reoperation. Patient state understanding wish to proceed. All questions were answered and consent was signed. Procedure: Patient was brought back to the OR where MAC anesthesia was found to be adequate. Patient was prepared and draped in dorsolithotomy position with yellowfin stirrups. Weighted speculum was placed in the posterior aspect of vagina and cervical dilators were used to dilate the cervix. Hysteroscope was inserted and above findings were noted. Sharp endometrial curettings were obtained from all quadrants of the uterus and sent to pathology. Uterine cavity length was found to be 5 and half centimeters. Kiara endometrial ablation device was inserted under direct visualization. Safety tests were passed x2. Endometrial ablation for 120 seconds performed. Kiara endometrial ablation device removed under direct visualization. Hysteroscope was inserted and above findings were noted. Good hemostasis was noted all counts were correct x2. Patient tolerated procedure well and was brought to recovery in stable condition.
[2021-12-06 08:40] VITALS: BP 118/73; BP 86/50; PULSE 57; RESP 16; TEMP 36.6; O2SAT 99
[2021-12-06 08:45] VITALS: BP 101/57; BP 118/73; PULSE 52; RESP 16; O2SAT 99
[2021-12-06] MEDS: Ketorolac 30 MG/ML Syringe IV (08:46)
[2021-12-06 08:50] VITALS: BP 106/61; BP 118/73; PULSE 51; RESP 16; O2SAT 99
[2021-12-06 08:55] VITALS: BP 114/61; BP 118/73; PULSE 63; RESP 16; O2SAT 100
[2021-12-06 09:00] VITALS: BP 118/73; BP 125/72; PULSE 60; RESP 16; TEMP 36.6; O2SAT 99
[2021-12-06] MEDS: Acetaminophen 500 MG Tablet 1000 MG PO (09:25)
== END 2021-12-06 09:54 | disposition home or self-care (01) ==
LOC: SDC 06:46 → AC 06:47
PROVIDERS: PCP Family Medicine; Referring Provider Obstetrics & Gynecology; Visit Provider Obstetrics & Gynecology
PROC: 0U5B8ZZ Destruction of Endometrium, Via Natural or Artificial Opening Endoscopic (ICD-10-PCS; CPT 58558; principal; 2021-12-06 08:05)
DX: N71.1 Chronic inflammatory disease of uterus (principal); F17.200 Nicotine dependence, unspecified, uncomplicated
CPT/HCPCS: 58558; 00952; 88305; J7120; J2405

== ENCOUNTER 2023-08-10 16:48 | Emergency (ER) | payer OTHER, SELFPAY ==
[2023-08-10 16:49] VITALS: BP 135/90; PULSE 80; RESP 17; TEMP 36.4; O2SAT 98; BMI 29.5
--- NOTE | 2023-08-10 17:00 | EX.ED.UPPERE ---
HPI History of Present Illness Chief Complaint: Upper Extremity Injury Informant: patient Narrative Narrative: Left hand dominant female presents crush injury left middle finger at work around 12 PM. States that straightening machine came down right onto her finger. She took Motrin 4 hours ago. Pain and throbbing to the distal finger. No history of similar. PFSH PFS Medical History Anxiety Depression Heartburn High cholesterol Obesity (BMI 30.0-34.9) Smoker Tachycardia Tobacco use Home Medications acetaminophen 500 mg tablet 500 - 1,000 mg PO DAILY PRN Pain 02/10/21 [History Last Taken Unknown] desogestrel-e.estradiol 0.15 mg-0.02 mg(21)/e.estrad 0.01 mg(5) tablet (Volnea ()) 2 tab PO DAILY 02/10/21 [History Last Taken 02/09/21 17:30] ibuprofen 200 mg tablet 800 mg PO DAILY PRN PRN Pain 02/10/21 [History Last Taken 02/09/21] Allergy/AdvReac Type Severity Reaction Status Date / Time egg Allergy Upset Verified 12/06/21 07:11 Stomach Sulfa (Sulfonamide Allergy Hives Verified 12/06/21 07:11 Antibiotics) tramadol Allergy Vomiting Verified 12/06/21 07:11 Family History (Updated 02/10/21 @ 15:[address] Luz Lawton MD) Father Diabetes Surgical History H/O tubal ligation History of bilateral salpingectomy History of tonsillectomy Social History household members: significant other and children Smoking Status: Current every day smoker tobacco type: cigarettes alcohol intake: never substance use type: does not use ROS ROS ED Constitutional Constitutional ED: Denies chills, fever(s) or sweats Eyes Eyes: Denies change in vision ENT ENT ED: Denies dysphagia or sore throat Cardiovascular Cardiovascular: Denies chest pain, leg edema, palpitations or racing heartbeat Respiratory/Chest Respiratory/Chest: Denies cough, dyspnea or dyspnea on exertion Gastrointestinal Gastrointestinal: Denies abdominal pain, diarrhea, nausea or vomiting Genitourinary Genitourinary ED: Denies dysuria, hematuria or urinary frequency Musculoskeletal Musculoskeletal: Reports extremity pain and other Details: Left middle finger injury ; Denies back pain or neck pain Integumentary Denies rash or wounds Neurologic Neurologic: Denies headache(s), paresthesias or weakness EXAM Physical Exam Const Vital Signs: 08/10/23 16:49 Temperature 97.5 F L Temperature Source Temporal Pulse Rate 80 Respiratory Rate 17 Blood Pressure 135/90 H Blood Pressure Mean 105 Pulse Ox 98 Oxygen Delivery Method Room Air Positive well nourished and well developed General Appearance ED: well developed and NAD HEENT Reports moist mucous membranes normocephalic and atraumatic Eyes PERRL, EOMs intact bilaterally and conjunctivae normal General Eye ED: Yes normal appearance of both eyes Neck no lymphadenopathy and supple General: Negative for tenderness Chest Wall Chest: Negative for tenderness Resp normal respiratory effort and normal air movement Effort and Inspection: symmetric chest movement; Negative for respiratory distress Cardio regular rate, regular rhythm and no murmurs Peripheral Pulses: pulses 2+ throughout GI normal to inspection, nondistended, normoactive bowel sounds and non-tender Palpation: Negative for guarding or rebound tenderness present Back/Spine no CVA tenderness and no thoracic nor lumbar tenderness Extremity Extremity Narrative: Left hand: Middle finger no deformities able to flex and extend her PIP and DIP joint. There is 100% subungual hematoma. Tender to palpation. General Extremety ED: Yes tenderness; Negative for edema General Extremity: Negative for edema Neuro oriented x3 and no sensory deficits noted Sensorium / Orientation: awake and alert Skin no rashes or lesions noted and no wounds MDM MDM MDM Narrative Medical decision making narrative: Interventions / MDM: Differential diagnosis: Subungual hematoma, crush injury to finger. Diagnosis considered but do not suspect: N/A My EKG interpretation: N/A Imaging independently reviewed and interpreted by myself: Three-view x-ray left middle finger: No fracture noted. External documents reviewed: N/A Test considered but not ordered:N/A ED course: Patient throbbing pain from crush injury with subungual hematoma is 100%. Tylenol started x-ray ordered. Sensation for trephination which she agreed with this were performed bedside. Discussed with patient to relieve improve of symptoms. 1705: Subungual hematoma trephination. Verbal consent. Chux pad was placed below the finger. Hand stabilize with finger: Trephination with 3 holes were placed. Initial expel of blood. Hematoma was improving with symptoms improving. Patient tolerated the procedure well. X-ray negative interpreted by myself. Dressing splint provided for protection. She did not want any work restrictions. She will follow-up with occupational health as needed. Re-evaluation: stable Disposition discussed with patient/family/significant other: Patient Case discussed with consulting clinician: N/A This note was generated with [employer] dictation software. It may contain incorrect words, spelling, and punctuation that were not noted in checking the note before signing. Discharge Plan Triage Chief Complaint: Upper Extremity Injury ED Provider: Joseluis Keane Dx/Rx/DC Orders Clinical Impression: Subungual hematoma of left middle finger, Crushing injury of left middle finger, initial encounter Instructions: ED Subungual Hematoma Prescriptions: No Action desog-e.estradiol/e.estradiol [Volnea (28)] 0.15-0.02 mgx21 /0.01 mg x 5 tablet 2 tab PO DAILY Patient Comments: take 1 tablet by mouth FROM EACH PACK DAILY Rx Instructions: TAKE 1 TABLET FROM EACH PACK DAILY acetaminophen 500 mg Tablet 500 - 1,000 mg PO DAILY PRN (Reason: Pain) ibuprofen 200 mg Tablet 800 mg PO DAILY PRN PRN (Reason: Pain) Primary Care Provider: Igor Hurley Referrals: Igor Hurley MD [Primary Care Provider] - Activity Restrictions/Additional Instructions: X-ray without any fracture. Normal wound care. Splint for comfort. Follow-up with occupational health as needed. Continue Tylenol or Motrin as needed. Disposition Disposition: Home, Self Care Discharge Date/Time: 08/10/23 17:50
--- NOTE | 2023-08-10 17:17 | RAD_ITS ---
INDICATION: Trauma, crushing injury middle finger with swelling distal phalanx EXAMINATION/TECHNIQUE: X-RAY - LEFT HAND XR Fingers Min 2 Views 3 VIEWS COMPARISON: None. FINDINGS: SOFT TISSUES: No soft tissue swelling or gas. No radiopaque foreign body. BONES/JOINTS: No acute fracture. Joint spaces anatomically aligned. RAD/Finger(s) Min 2 Views IMPRESSION: No acute bony injury. Electronically Signed: Calos Cervantes MD at 18:08 EDT ,
[2023-08-10] MEDS: Acetaminophen 500 MG Tablet 1000 MG PO (17:44)
== END 2023-08-10 17:50 | disposition home or self-care (01) ==
PROVIDERS: Emergency Provider Emergency Medicine; PCP Family Medicine; Visit Provider Emergency Medicine
DX: S67.193A Crushing injury of left middle finger, initial encounter (principal); E78.00 Pure hypercholesterolemia, unspecified; F17.210 Nicotine dependence, cigarettes, uncomplicated; S60.032A Contusion of left middle finger without damage to nail, initial encounter; W23.0XXA Caught, crushed, jammed, or pinched between moving objects, initial encounter; Y99.0 Civilian activity done for income or pay
CPT/HCPCS: 73140; 99283

== ENCOUNTER → 2024-02-27 | Outpatient (CLI) | payer OTHER, SELFPAY ==
--- NOTE | 2024-02-27 16:45 | MRI_ITS ---
STUDY: MRI BRAIN WITH AND WITHOUT CONTRAST REASON FOR EXAM: Female, 28 years old. OPTIC NEURITIS, RETROBULBAR TECHNIQUE: Standardized multiplanar fat and water weighted pulse sequences were obtained. IV 13cc clariscan was administered for the contrast portion of the examination. COMPARISON: None. FINDINGS: Normal size of the ventricles and extra-axial spaces for the patient''s age. Normal white matter tracts of the supratentorial brain. Normal bilateral basal ganglia. Normal thalami. There is no extra-axial fluid accumulation. Normal flow voids within the major intracranial circulation suggesting patency by spin echo criteria. Normal venous enhancement. There is no enhancing intra-axial or extra-axial abnormality. Normal sella turcica, pituitary gland, infundibular stalk, optic chiasm and hypothalamus. Normal tectal plate and pineal gland. Normal midbrain, jes and medulla. Normal cerebellum. Normal basal cisterns. Normal bilateral temporal bones. Normal bilateral internal auditory canals. There is mild diffuse nonspecific enhancement of the retrobulbar portion of the optic nerve to the level of the cavernous sinus which may be consistent with nonspecific upper right as possibly due to multiple sclerosis or giant cell arteritis. Normal visualized paranasal sinuses. Normal calvarium and skull base. Normal visualized soft tissue structures. Normal visualized upper cervical spine. MRI/Brain W/WO Contrast IMPRESSION: Findings which may be consistent with nonspecific optic neuritis possibly due to multiple sclerosis in patient of this age. However, there is no definitive evidence for multiple sclerosis within the brain at this time. Electronically Signed: Igor Nagy MD at 18:41 EST ,
== END | disposition home or self-care (01) ==
LOC: MRI 16:16
PROVIDERS: PCP Family Medicine; Referring Provider Ophthalmology; Visit Provider Ophthalmology
DX: H46.11 Retrobulbar neuritis, right eye (principal)
CPT/HCPCS: 70553; A9575

== ENCOUNTER 2024-03-17 19:50 | Emergency (ER) | payer OTHER, SELFPAY ==
[2024-03-17 19:51] VITALS: BP 133/69; PULSE 99; RESP 18; TEMP 36.8; O2SAT 94; BMI 31.0
--- NOTE | 2024-03-17 20:02 | RAD_ITS ---
EXAM: XR CHEST, 2 VIEWS CLINICAL INDICATION: cough TECHNIQUE: Frontal and lateral views of the chest. COMPARISON: 02/10/2021 FINDINGS: LUNGS AND PLEURAL SPACES: Unremarkable. No consolidation or edema. No pneumothorax. No effusion. HEART: Unremarkable. Cardiac silhouette not enlarged. MEDIASTINUM: Central airways and mediastinal contour are unremarkable. BONES/JOINTS: Unremarkable. No acute fracture. SOFT TISSUES: Unremarkable. RAD/Chest PA and Lateral IMPRESSION: No radiographic evidence of acute cardiopulmonary disease. Electronically Signed: Enzo Cordon MD at 21:20 EST ,
--- NOTE | 2024-03-17 20:04 | EX.ED.DYSGE1 ---
HPI <SHUKRI Mills - Last Filed: 03/17/24 21:16> History of Present Illness Chief Complaint: Cough Narrative Narrative: Patient is a 28-year-old female with history of asthma, pleurisy who presents to the emergency department for cough it has been ongoing for 1 week. Patient denies any fever chills nausea or vomiting. Patient's the cough is getting worse. She usually smokes 1/4 to 1/2 pack of cigarettes per day. She denies any fever chills nausea vomiting peer denies any sick contacts. PFSH <SHUKRI Mills - Last Filed: 03/17/24 21:16> PFSH Medical History Anxiety Depression Heartburn High cholesterol Obesity (BMI 30.0-34.9) Smoker Tachycardia Tobacco use Home Medications ?Medication ?Instructions ?Recorded ?Last Taken ?Type acetaminophen 500 mg tablet 500 - 1,000 mg PO DAILY PRN Pain 02/10/21 Unknown History desogestrel-e.estradiol 0.15 2 tab PO DAILY 02/10/21 02/09/21 17:30 History mg-0.02 mg(21)/e.estrad 0.01 mg(5) tablet (Volnea (28)) ibuprofen 200 mg tablet 800 mg PO DAILY PRN PRN Pain 02/10/21 02/09/21 History albuterol sulfate 90 mcg/actuation 2 puff inhalation Q4H PRN PRN 03/17/24 Unknown Rx aerosol inhaler (Ventolin HFA) Wheezing 14 days #6.7 grams cephalexin 500 mg capsule 500 mg PO TID 03/17/24 Unknown History prednisone 50 mg tablet 50 mg PO DAILY #5 tabs 03/17/24 Unknown Rx propranolol 10 mg tablet 10 mg PO DAILY 03/17/24 Unknown History Allergy/AdvReac Type Severity Reaction Status Date / Time egg Allergy Upset Verified 03/17/24 19:51 Stomach Sulfa (Sulfonamide Allergy Hives Verified 03/17/24 19:51 Antibiotics) tramadol Allergy Vomiting Verified 03/17/24 19:51 Family History (Updated 02/10/21 @ 15:[address] Luz Lawton MD) Father Diabetes Surgical History H/O tubal ligation History of bilateral salpingectomy History of tonsillectomy Social History household members: significant other and children Smoking Status: Current every day smoker tobacco type: cigarettes alcohol intake: never substance use type: does not use ROS <SHUKRI Mills - Last Filed: 03/17/24 21:16> ROS ED ROS Narrative Constitutional: Negative for fever, chills, weight loss, weakness Eyes: Negative for vision loss, vision change, double vision ENT: Negative for any sore throat, ear pain, congestion Cardiovascular: Negative for any chest pain, tightness, palpitations Respiratory: Negative for any sputum production, hemoptysis, dyspnea, dyspnea on exertion, orthopnea. Positive for cough Gastrointestinal: Negative for any abdominal pain, nausea, vomiting, diarrhea, constipation, blood in stool, blood in vomit : Negative for any urinary frequency, dysuria, retention, blood in urine Muscle skeletal: Negative for any neck pain, back pain Neurological: Negative for any headache, syncope, dizziness Skin: Negative for any rashes, itching, abrasions, lacerations Psychiatric: Negative for any depression, anxiety, stress, suicidal ideation, homicidal ideation Hematologic: Negative for any excessive bruising, easy bleeding EXAM <SHUKRI Mills - Last Filed: 03/17/24 21:16> Physical Exam Narrative Exam Narrative: Vital signs reviewed. HEET: Head normocephalic atraumatic, TMs clear bilaterally. Posterior pharynx is clear, moist mucous membranes. Nares clear bilaterally. Neck: Supple with no lymphadenopathy or tenderness. No signs of meningismus. Cardiac: Regular rate and rhythm no murmurs gallops or rubs, equal peripheral pulses bilaterally. Respiratory: Expiratory wheezes to bilateral lower lung bases, worse on the left. No chest tenderness. Abdomen: Soft, nontender, nondistended. No abdominal bruit or pulsatile masses. No hepatosplenomegaly Extremities: No peripheral edema, no signs of gross trauma or deformity. Active full range of motion of all extremities. Neuro: Cranial nerves II through XII intact, no focal neurological deficits. Skin: Clean dry and intact with no rash, purpura, petechiae, vesicles or pustules. Backs/flank: No CVA tenderness, no midline spinal tenderness, no deformity. Psych: Normal mood and affect. No SI, HI or acute psychosis. Const Vital Signs: 03/17/24 19:51 03/17/24 20:15 03/17/24 20:26 Temperature 98.3 F Temperature Source Oral Pulse Rate 99 105 H Respiratory Rate 18 18 Respiratory Effort Normal Respiratory Depth Normal Respiratory Pattern Normal Blood Pressure 133/69 H Blood Pressure Mean 90 Pulse Ox 94 Oxygen Delivery Method Room Air Positive well nourished and well developed General Appearance ED: well developed <Dr. Isidoro Galo, - Last Filed: 03/21/24 12:13> Physical Exam Const Vital Signs: 03/17/24 19:51 03/17/24 20:15 03/17/24 20:26 Temperature 98.3 F Temperature Source Oral Pulse Rate 99 105 H Respiratory Rate 18 18 Respiratory Effort Normal Respiratory Depth Normal Respiratory Pattern Normal Blood Pressure 133/69 H Blood Pressure Mean 90 Pulse Ox 94 Oxygen Delivery Method Room Air MDM <Matthew Sesay [employer] - Last Filed: 03/17/24 21:16> MDM Radiography Diagnostic Testing: Clinical Impression(s) from Imaging Studies Chest X-Ray 03/17/24 20:02 IMPRESSION: No radiographic evidence of acute cardiopulmonary disease. Electronically Signed: Enzo Cordon MD at 21:20 EST , Treatment and Re-Evaluation :: Differential diagnosis includes however is not limited to: Cough, asthma exacerbation, reactive airway disease, community-acquired pneumonia, pneumothorax Patient appears generally well, vital signs are stable, patient is nontoxic-appearing. Presenting to the emergency department complaints of cough, congestion over the last week. Patient has no fever chills or other infectious symptoms. Patient did have some wheezing on my examination, patient received breathing treatments, oral steroids. Two-view chest x-ray will be ordered. All radiologic examinations were read, reviewed by the emergency department attending. From these reads, a plan of care will be put in place. Patient be reevaluated after chest x-ray. Patient's chest x-ray two-view interpreted by ER physician was negative. At this time, patient be placed on albuterol inhaler, steroids for 5 days. She is instructed to quit smoking. She will follow-up outpatient, stable for discharge. <Dr. Isidoro Galo, DO - Last Filed: 03/21/24 12:13> MDM Radiography Diagnostic Testing: Clinical Impression(s) from Imaging Studies Chest X-Ray 03/17/24 20:02 IMPRESSION: No radiographic evidence of acute cardiopulmonary disease. Electronically Signed: Enzo Cordon MD at 21:20 EST , Treatment and Re-Evaluation :: Differential diagnosis includes however is not limited to: Cough, asthma exacerbation, reactive airway disease, community-acquired pneumonia, pneumothorax Patient appears generally well, vital signs are stable, patient is nontoxic-appearing. Presenting to the emergency department complaints of cough, congestion over the last week. Patient has no fever chills or other infectious symptoms. Patient did have some wheezing on my examination, patient received breathing treatments, oral steroids. Two-view chest x-ray will be ordered. All radiologic examinations were read, reviewed by the emergency department attending. From these reads, a plan of care will be put in place. Patient be reevaluated after chest x-ray. Patient's chest x-ray two-view interpreted by ER physician was negative. At this time, patient be placed on albuterol inhaler, steroids for 5 days. She is instructed to quit smoking. She will follow-up outpatient, stable for discharge. ED attending note: I evaluated the patient in conjunction with the [facility]. I agree with his/her statements and above findings. I have personally performed a face to face assessment of the patient and have reviewed the [facility] Note. I performed a substantive portion of the visit including all aspects of the following. I personally saw the patient performed chart review, physical exam, reviewed labs, imaging (if obtained), and formulated a treatment and management plan. This note was generated with [employer] software. It may contain incorrect words, spelling, and punctuation that were not noted in review of the chart prior to signing. Discharge Plan Triage Chief Complaint: Cough ED Midlevel Provider: Matthew Sesay ED Provider: Isidoro Galo Dx/Rx/DC Orders Clinical Impression: Asthma exacerbation, Cough Instructions: Asthma and COPD, ED Cough Chronic Uncertain Cause Adult Prescriptions: New albuterol sulfate [Ventolin HFA] 90 mcg/actuation HFA aerosol inhaler 2 puff inhalation Q4H PRN PRN (Reason: Wheezing) 14 Days Qty: 6.7 0RF prednisone 50 mg tablet 50 mg PO DAILY Qty: 5 0RF No Action desog-e.estradiol/e.estradiol [Volnea (28)] 0.15-0.02 mgx21 /0.01 mg x 5 tablet 2 tab PO DAILY Patient Comments: take 1 tablet by mouth FROM EACH PACK DAILY Rx Instructions: TAKE 1 TABLET FROM EACH PACK DAILY acetaminophen 500 mg Tablet 500 - 1,000 mg PO DAILY PRN (Reason: Pain) ibuprofen 200 mg Tablet 800 mg PO DAILY PRN PRN (Reason: Pain) propranolol 10 mg tablet 10 mg PO DAILY cephalexin 500 mg capsule 500 mg PO TID Primary Care Provider: Igor Hurley Referrals: Igor Hurley MD [Primary Care Provider] - Activity Restrictions/Additional Instructions: Please follow-up outpatient. Try to quit smoking. Use the albuterol inhaler as needed. Use the steroids until finished. Print Language: Mongolian Disposition Disposition: Home, Self Care Discharge Date/Time: 03/17/24 21:39
[2024-03-17] MEDS: predniSONE 20 MG Tablet 40 MG PO (20:12)
[2024-03-17] MEDS: Albuterol 2.5 MG/3 ML VIAL.NEB. 5 MG INHALATION (20:24)
[2024-03-17] MEDS: Ipratropium/Albuterol Sulfate 3 ML AMPUL.NEB INHALATION (20:24)
[2024-03-17 20:26] VITALS: PULSE 105; RESP 18
[2024-03-17 21:38] VITALS: PULSE 78; RESP 18; O2SAT 100
== END 2024-03-17 21:39 | disposition home or self-care (01) ==
PROVIDERS: Emergency Provider Emergency Medicine; PCP Family Medicine; Visit Provider Emergency Medicine
DX: J45.901 Unspecified asthma with (acute) exacerbation (principal); E78.00 Pure hypercholesterolemia, unspecified; F17.210 Nicotine dependence, cigarettes, uncomplicated; R05.9 Cough, unspecified; Z79.899 Other long term (current) drug therapy
CPT/HCPCS: 71046; 94640; 99282